=== PATIENT | female | born 1960 | race Caucasian/White ===

== ENCOUNTER → 2016-07-04 | Outpatient (CLI) | payer BC ==
[~2016-07-04] MED LIST: DAPT500I IV; GLC/500 PO; GLYB2.5T7 PO; LISI-787 PO; LISIPOW PO; MCR5 PO
== END | disposition home or self-care (01) ==
LOC: C.LABSPEC 17:27
PROVIDERS: ATTEND Podiatrist Foot & Ankle Surgery
DX: L97.509 Non-pressure chronic ulcer of other part of unspecified foot with unspecified severity (principal)

== ENCOUNTER → 2016-09-26 | Outpatient (CLI) | payer BC ==
--- NOTE | 2016-09-26 09:52 | DIAGNOSTIC IMAGING REPORT ---
MRI RIGHT FOREFOOT WITHOUT IV CONTRAST CLINICAL HISTORY: Foot ulcer. COMPARISON STUDY: No priors. TECHNIQUE: MRI of the right forefoot is performed utilizing various T1 and T2-weighted sequences in the axial, sagittal, coronal planes. IV contrast was not administered for this examination. The examination is significantly degraded by motion artifact. Note that interpretation is suboptimal without plain film correlate. FINDINGS: There is a cutaneous ulceration seen along the plantar aspect of the fifth metatarsal head. There is soft tissue edema in this region typical in appearance for cellulitis. There is no organized fluid collection seen to indicate abscess. There is significant marrow edema identified within the distal fifth metatarsal shaft and the fifth metatarsal head with drop in signal on T1-weighted sequence consistent with osteomyelitis. There is cortical destruction seen along the plantar aspect of the fifth metatarsal head. No additional foci of marrow abnormality are identified to suggest osteomyelitis. There is nonspecific myositis within the regional musculature. IMPRESSION: 1. Findings are consistent with osteomyelitis involving the distal shaft and head of the fifth metatarsal. 2. No additional foci of osteomyelitis are identified. 3. A cutaneous ulceration is seen along the plantar aspect of the fifth metatarsal head with surrounding cellulitis. There is no evidence of abscess. Dictated: 09/26/2016 9:15 AM Transcribed: 09/26/2016 9:51 AM [email or web address] Electronically signed by: Abhi Arias M.D. 09/26/2016 10:24 AM Dictated Date/Time: 09/26/2016 9:15 AM
== END | disposition home or self-care (01) ==
LOC: C.MRI 07:33
PROVIDERS: ATTEND Podiatrist Foot & Ankle Surgery
DX: E11.49 Type 2 diabetes mellitus with other diabetic neurological complication (principal); L03.115 Cellulitis of right lower limb; M20.42 Other hammer toe(s) (acquired), left foot; M20.41 Other hammer toe(s) (acquired), right foot; M86.171 Other acute osteomyelitis, right ankle and foot

== ENCOUNTER → 2016-10-09 | Outpatient (CLI) | payer BC ==
[2016-10-09 10:59] LABS: ALT/SGPT 18 U/L (12-78); AST/SGOT 11 U/L (15-37); BLOOD UREA NITROGEN 11 mg/dl (7-18); BUN/CREATININE RATIO 19.1 (10-20); CARBON DIOXIDE 28 mmol/L (21-32); CHLORIDE 105 mmol/L (98-107); CREATININE 0.57 mg/dl (0.60-1.20); GLUCOSE 198 mg/dl (70-99); POTASSIUM 3.8 mmol/L (3.5-5.1); SODIUM 139 mmol/L (136-145)
[2016-10-09 11:02] LABS: ALKALINE PHOSPHATASE 85 U/L (45-117)
== END | disposition home or self-care (01) ==
LOC: C.LABSPEC 10:14
PROVIDERS: ATTEND Podiatrist Foot & Ankle Surgery
DX: L03.115 Cellulitis of right lower limb (principal); M86.171 Other acute osteomyelitis, right ankle and foot

== ENCOUNTER 2016-10-13 10:32 | Emergency (ER) | payer BC ==
[~2016-10-13] VITALS: Ht 170.2 cm; Wt 74.8 kg
[~2016-10-13 10:32] MED LIST changes: -DAPT500I IV; -GLYB2.5T7 PO; -LISI-787 PO; -MCR5 PO
[2016-10-13 10:43] VITALS: BP 178/77; PULSE 96; TEMP 37.4; O2SAT 99; Ht 170.2 cm; Wt 74.8 kg
[2016-10-13] MEDS ORDERED: LISI-787 PO (11:01)
[2016-10-13] MEDS ORDERED: MCR5 PO (11:01)
--- NOTE | 2016-10-13 16:41 | EMERGENCY ROOM VISIT NOTE ---
History First contact with patient: 10:46 Chief Complaint: PICC LINE CLOTTED Stated Complaint: PICC LINE NOT WORKING CORRECTLY History of Present Illness The patient is a 56 year old female who presents to the Emergency Room with complaints of a PICC line and it is not working correctly. The patient is currently being administered IV vancomycin for osteomyelitis of her foot. She is under the management of Dr. Myers. The patient reports that the IV seems sluggish last evening. When she tried to flush it today, she did not have any success. Her home health care nurse suggested that she come to the emergency department for PICC line evaluation. She denies any pain in the right upper extremity or chest. She denies any shortness of breath. She has had no recent fever or chills. Review of Systems 10 system review was performed and was negative except for pertinent positives and negatives as indicated in history of present illness Past Medical/Surgical History Medical Problems: (1) Cellulitis Of Right Lower Limb (2) Non-Prs Chronic Ulcer Oth Prt Left Foot W Fat Layer Exposed (3) Other Acute Osteomyelitis, Right Ankle And Foot (4) Other Hammer Toe(S) (Acquired), Left Foot (5) Other Hammer Toe(S) (Acquired), Right Foot (6) Type 2 Diabetes W Oth Diabetic Neurological Complication (7) Ulcer Of Other Part Of Foot Family History Unremarkable Social History Smoking Status: Never Smoker Alcohol Use: occasionally Marital Status: Housing Status: lives alone Occupation Status: employed Current/Historical Medications Scheduled Glyburide (Glyburide), 2.5 MG PO QAM Lisinopril/Hctz (Zestoretic 20MG/12.5MG), 0.5 TAB PO QAM Metformin Hcl (Glucophage), 1,000 MG PO BID Allergies Coded Allergies: Penicillins (Verified Allergy, Severe, LIPS SWELL, 10/13/16) HAPPENED IN CHILDHOOD-PT DOESN'T REMEMBER IF SHE HAD DIFFICULTY BREATHING Physical Exam Vital Signs Date Time Temp Pulse Resp B/P Pulse Ox O2 Delivery O2 Flow Rate FiO2 10/13/16 10:43 37.4 96 20 178/77 99 Room Air Pain Rating (0-10): 0 Physical Exam CONSTITUTIONAL: Healthy and well nourished. Alert and oriented X 3 with positive affect. HEENT: Normocephalic, atraumatic. Pupils equal, round and reactive. NECK: Full active range of motion without discomfort. RESPIRATORY: Clear to auscultation bilaterally with no wheezing, crackles, rhonchi or stridor. CARDIOVASCULAR: Regular rate and rhythm with no murmurs, rubs or gallops. MUSCULOSKELETAL: Full range of motion of the right elbow and shoulder without discomfort. INTEGUMENTARY: Examination shows a PICC line insertion over the medial aspect of the upper arm. She has no obvious infiltration, erythema or induration around the venipuncture site. NEUROLOGIC: No focal neurologic deficits noted. Medical Decision & Procedures ED Course Patient history and physical exam were performed. Nurse's notes were reviewed. Vital signs were reviewed and were normal. IV team was consult did and came to the emergency department for PICC line evaluation. They were able to flush the PICC line, showing full functionality. Additional education was also provided to the patient. The patient was instructed to return to the emergency department for any further PICC line problems, otherwise may follow up for her outpatient IV antibiotic treatment. Medical Decision Impression Primary Impression: Occluded PICC line Departure Information Dispostion Home / Self-Care Condition GOOD Forms HOME CARE DOCUMENTATION FORM, IMPORTANT VISIT INFORMATION Patient Instructions [facility] Additional Instructions Return to the ER for any further PICC line problems
[2016-11-11] MEDS ORDERED: DAPT500I IV (10:17)
== END 2016-10-13 12:17 | disposition home or self-care (01) ==
LOC: C.EDB 10:39 → C.EDD 12:17
DX: T82.898A Other specified complication of vascular prosthetic devices, implants and grafts, initial encounter (principal); X58.XXXA Exposure to other specified factors, initial encounter; E11.40 Type 2 diabetes mellitus with diabetic neuropathy, unspecified; Z86.19 Personal history of other infectious and parasitic diseases; Z79.899 Other long term (current) drug therapy; Z88.0 Allergy status to penicillin

== ENCOUNTER 2016-10-14 17:08 | Inpatient (IN) | payer BC ==
[~2016-10-14] VITALS: Ht 170.2 cm; Wt 23.5 kg
[~2016-10-14 17:08] MED LIST changes: +LISI-787 PO; -LISIPOW PO; +MCR5 PO
--- NOTE | 2016-10-14 17:31 | HISTORY & PHYSICAL EXAMINATION ---
DATE OF ADMISSION: 10/14/2016 PREOPERATIVE HISTORY AND PHYSICAL HISTORY OF PRESENT ILLNESS: A 56-year-old female presented to my office with a red hot swollen right foot. She notes pain and swelling and drainage is located in the right foot. She grades the pain as a 7 on a 10 point scale and gradually worsening over time. She notes it is sore and tender. Condition was first noted several months ago and has recently become worse. She has been getting outpatient IV antibiotics of vancomycin and has been refusing surgical debridement due to work schedule and hospital admission at this time. Due to increased pain and swelling, she is amenable to hospital admission at this time. She notes the antibiotics have not changed the condition. She has had conservative treatment for several months including DH sandal, palliative debridements, local wound care and recent IV antibiotics of vancomycin. The patient is a direct admit from my office. PAST SURGICAL HISTORY: Tubal ligation 1994. PAST MEDICAL HISTORY: Hypertension, Lyme disease, diabetes, back problems. MEDICATIONS: Vancomycin, glyburide, metformin, lisinopril. ALLERGIES: PENICILLIN. FAMILY HISTORY: Diabetes, hypertension, stroke, heart problems, heart attack, high cholesterol. SOCIAL HISTORY: The patient admits to alcohol use, drinking described as social. REVIEW OF SYSTEMS: Unremarkable except chief complaint. Overall, blood sugar was reasonably controlled. She was taken off oral hypoglycemics in May; however, restarted as blood work showed an elevated hemoglobin A1c. She denies tingling. PHYSICAL EXAMINATION: VITAL SIGNS: Height 5 feet 7 inches, weight 150 pounds. Body mass index 23, tympanic temperature 96.4. CONSTITUTIONAL: The patient is well-developed and nourished with good attention to body grooming and habitus. HEAD AND FACE: Head is normocephalic and atraumatic without any gross head, face, or neck masses. EYES: Conjunctival and pupillary accommodation is normal. EARS, NOSE, MOUTH, AND THROAT: Unremarkable. NECK: Neck is supple. Trachea is midline. CARDIOVASCULAR: Normal S1, S2 without murmur, gallops, rubs, or clicks noted. LUNGS: Clear to auscultation bilaterally and equal. GASTROINTESTINAL: Abdominal organs, bladder, and kidneys show no masses, tenderness, or rigidity. LYMPHATIC: No popliteal, inguinal, or supraclavicular lymphadenopathy noted. LOWER EXTREMITY: DP palpable 1/4 and PT palpable 1/4 and digital hair is absent. Focal swelling is noted to the right fifth MTPJ. DERMATOLOGIC: There is erythema involving the plantar lateral and dorsal aspect of the right fifth MTPJ. Ulceration plantar right fifth MTPJ and plantar left fifth MTPJ. Preulcerative areas noted over the calcaneal room. There is exudate draining from the right fifth MTPJ with exposed tendon on the right fifth MTPJ. The bone is not palpable over this area. There is dried drainage noted in the callous tissue over the left fifth MTPJ. NEUROLOGICAL: Touch, pin, vibratory pain, proprioception sensations are decreased. Epicritic sensation decreased distally. Deep tendon reflexes are normal. MUSCULOSKELETAL: First metatarsophalangeal joint shows evidence of an enlarged dorsal medial eminence on the left. There is mild prominence of the fifth MTPJ bilaterally and plantar flex fifth MTPJ bilaterally. IMAGING DATA: MRI on 09/26/2016 shows cutaneous ulceration along the plantar aspect of the fifth metatarsal head, soft tissue edema in the region of typical and appearance for cellulitis. There is no organized fluid collection seen to indicate an abscess. There is significant marrow edema identified within the distal fifth metatarsal shaft and metatarsal head with a drop in the T1 weighted sequence consistent with osteomyelitis. There is cortical destruction seen along the plantar aspect of the fifth metatarsal heads. Findings consistent with osteomyelitis involving the distal shaft and head of the fifth metatarsal. No additional focal of osteomyelitis are identified. Cortices for the proximal phalanx are intact. There is cutaneous ulceration along the plantar aspect of the fifth metatarsal head with surrounding cellulitis. There is no evidence of an abscess. IMPRESSION: 1. Cellulitis, right foot. 2. Acute osteomyelitis, right fifth metatarsal. 3. Difficulty walking. 4. Pain, lower extremity. 5. Cristina grade 2 ulceration, right fifth metatarsophalangeal joint, when grade 1 ulceration left fifth metatarsophalangeal joint and preulcerative area noted to the heels bilaterally. PLAN: Recommended hospital admission with continued IV antibiotics. Surgical procedures to be performed: 1. I\T\D right foot. 2. Resection of fifth metatarsal possible fifth digit amputation on the right. The patient would like to proceed without amputation at this time. She has consented if there is Osteo in here; however, she would like to proceed with metatarsal head resection. Procedures, risks and complications were fully reviewed with the patient. She is aware that by leaving the fifth digit, she will end up with some digital contracture in this area, most likely will need amputation in the future. At this time, patient still would like to proceed with only the fifth metatarsal. She also was told that there is no guarantee that this surgery will not require further surgery, specifically while leaving part of the bone that is showing involvement on the MRI. Consent form, foot diagram and illustration and all the patient's questions were answered. They have been previously answered last week and would really irradiated today. Complications were discussed in detail with the patient including pain, infection, swelling that may or may not be excessive, pins and needles feeling, numbness, metatarsalgia, excessive bleeding, delay or nonhealing bone, delay or nonhealing of skin, enlarged scar, failure of the procedure, reoccurrence or worsening condition which may or may not require further surgery, adverse reaction to anesthesia, allergic reaction to suture or other implant material, loss of toe, foot, or leg, flail toe, stiff toe, short toe, elevated toe, transfer lesion or callus, peripheral neurovascular complications such as phlebitis, damage to nerves or vascular structures, severe or chronic pain, chronic nerve pain or damage, and general medical complications. The patient will be required to wear a surgery shoe for a minimum of 4-6 weeks and not return to dress shoe for 6-12 weeks on the postop edema. The patient is aware this is an elective type procedure and I recommend a second opinion. The patient stated they understood. Consent form was signed with a copy of the foot diagram issued to the patient. Verbal and written postop instructions were given. The patient will be required to be in a surgery shoe for a minimum of 4-6 weeks and not return to dress shoe for 6-12 weeks, depending on the postoperative edema. The patient will be admitted. We have attempted to reach the [facility] physician, recommended a good glucose control and oncall to the OR for an I\T\D and resection of fifth metatarsal possible right fifth digital amputation to the right foot.
[2016-10-14 18:44] VITALS: BP 152/82; PULSE 100; TEMP 36.7; Ht 170.2 cm; Wt 23.5 kg
[2016-10-14] MEDS ORDERED: GLUCOSE 10 TABS/TUBE PO PRN (19:00)
[2016-10-14] MEDS ORDERED: DEXTROSE 50% 50 ML SYR IV PRN (19:00)
[2016-10-14] MEDS ORDERED: GLUCAGON FOR INJ 1 MG VIAL SQ PRN (19:00)
[2016-10-14] MEDS ORDERED: GLUCOSE 40% GEL 15 GM TUBE PO PRN (19:00)
[2016-10-14] MEDS ORDERED: ACETAMINOPHEN 325 MG TAB PO PRN (19:15)
[2016-10-14] MEDS ORDERED: SODIUM CHLORIDE 0.9% 1000ML 1,000 ML IV SCH (19:15)
--- NOTE | 2016-10-14 19:28 | Anesthesiology Progress Note ---
Anesthesia Progress Note Date of Service October 14, 2016. Progress Notes The patient is a 56 y/o female scheduled for a R fifth metatarsal amputation tomorrow. She has R foot cellulitis which she has been on Vancomycin to treat as an outpatient. The patient has an allergy to penicillins. Other PMH includes Type 2 DM, HTN, and back pain. She has good functional status and no problems with anesthesia. An EKG showed NSR. CBC and electrolytes are pending. On exam the patient has good neck extension and is a MP 1. Heart is RRR and lungs are clear. Carotids are negative for bruits. The patient is an ASA 2. She was consented to general vs. MAC sedation vs. R ankle block for the anesthetic. The anesthetic will be determined tomorrow by the patient, Dr. Smiley, and the anesthesiologist caring for her during the procedure. The patient was counseled to remain NPO after midnight except for sips of water with pills.
[2016-10-14] MEDS ORDERED: VANCOMYCIN CONSULT ACTIVE PRN (20:45)
--- NOTE | 2016-10-14 20:50 | Pharmacy Progress Note ---
Pharmacy Antibiotic Consult Date of Service: October 14, 2016. Pharmacy Dosing Scope Pharmacy is consulted to initiate vancomycin IV dosing therapy, order appropriate labs and adjust drug dose/frequency. Subjective The patient is a 56 year old female admitted on October 14, 2016 at 17:50 with worsening diabetic foot infection. She was started on vancomycin as an outpatient on 10/03/16. She was started on vancomycin 1200 mg IV q12 which was increased on Friday to 1300 mg IV q12. She has not missed any doses. She takes the medication at 11 am and 11 pm. Previous cultures have grown only gram positive bacteria. Objective Height (Feet): 5 Height (Inches): 7.00 Weight (Kilograms): 23.500 Lab Results (24hrs): Test 10/14/16 18:22 10/14/16 20:20 Assessment & Plan Continue vancomycin 1300 mg IV every 12 hours. Goal peak level estimate: between 35 - 40 mcg/mL. Goal trough level estimate: between 15 - 20 mcg/mL. Trough has been ordered for: prior to 11 am dose. Pharmacy will continue to follow and will adjust dose/frequency as necessary. Thank you
[2016-10-14] MEDS ORDERED: INSULIN ASPART 100 UNITS/ML 3 ML PEN SC SCH (21:00)
[2016-10-14 21:24] LABS: BASO % 0.7 %; BASO ABS # 0.04 K/uL (0-0.2); COMPLETE YES; HEMATOCRIT 31.1 % (37-47); IG% 0.2 %; LYMPH % 29.6 %; LYMPH ABS # 1.68 K/uL (1.2-3.4); MEAN CELL VOLUME 88.9 fL (80-100); MEAN CORPUSCULAR HEMOGLOBIN 28.9 pg (25-34); MEAN CORPUSCULAR HGB CONC 32.5 g/dl (32-36); MEAN PLATELET VOLUME 9.6 fL (7.4-10.4); MONO % 16.4 %; NEUT % 49.1 %; PLATELET COUNT 278 K/uL (130-400); WHITE BLOOD COUNT 5.68 K/uL (4.8-10.8)
[2016-10-14 21:48] LABS: BUN/CREATININE RATIO 19.5 (10-20); CREATININE 0.58 mg/dl (0.60-1.20); POTASSIUM 3.7 mmol/L (3.5-5.1)
[2016-10-14 21:51] LABS: PHOSPHORUS 2.9 mg/dl (2.5-4.9)
--- NOTE | 2016-10-14 21:56 | DIAGNOSTIC IMAGING REPORT ---
RIGHT FOOT 3 VIEWS CLINICAL HISTORY: Right foot pain. Osteomyelitis. FINDINGS: 3 views the right foot are correlated with MRI of the right forefoot dated 09/26/2016. The skeletal structures are osteopenic. No fracture is seen. Erosive change, cortical disruption, and lucency are suggested in the fifth metatarsal head. This likely represents osteomyelitis, and corresponds the abnormality seen by MRI on 09/26/2016. There is overlying soft tissue edema. A cutaneous defect along the plantar aspect of the fifth metatarsal head likely represents a cutaneous ulceration. No additional foci of bony destruction are suggested. A small radiodense foreign body is suggested between the third and fourth proximal phalanges. IMPRESSION: Findings remain highly concerning for osteomyelitis of the fifth metatarsal head with overlying soft tissue edema and probable cutaneous ulcer. Electronically signed by: Abhi Arias M.D. 10/14/2016 9:55 PM Dictated Date/Time: 10/14/2016 9:52 PM
--- NOTE | 2016-10-14 22:06 | Medical Consult ---
Consultation Date of Consultation: October 14, 2016. Attending Physician: Hailee Smiley D.PDannielle Reason for Consultation: comedical management History of Present Illness This is a 56 year old female directly admitted by autotransfusionist Dr. Smiley for right foot cellulitis with osteomyelitis of right 5th metatarsal. Patient reports right foot ulcer is present since April 2016. Then in July 2016 she developed cellulitis of the left foot with symptoms of pain, swelling, erythema. She had an MRI on 09/26/16 showing osteomyelitis of right 5th metatarsal. Patient reports taking 3 oral antibiotics prior to being placed on vancomycin via PICC line since 10/03/16. Last dose this morning. She was having trouble flushing her PICC line yesterday and was seen in ER with resolution, but had trouble again today. Patient states erythema improved with abx but still having pain and swelling. Has had slight serosanguineous drainage from the ulcer. Patient has had multiple debridements including today in Dr. Smiley' s office. Patient denies fever, chills, chest pain, SOB, N/V/D, urinary changes , calf pain. She is able to climb stairs without exertional SOB or chest pain. No history of CAD/ MS. She had a preop evaluation by her PCP Dr. Agrawal and was considered an acceptable surgery candidate. Past Medical/Surgical History Medical Problems: (1) Diabetic neuropathy Status: Chronic (2) DM type 2 (diabetes mellitus, type 2) Status: Chronic (3) Dyslipidemia Status: Chronic (4) HTN (hypertension) Status: Chronic Surgical Problems: (1) S/P tonsillectomy Status: Chronic (2) S/P tubal ligation Status: Chronic Family History Diabetes mellitus FATHER FH: CAD (coronary artery disease) FATHER (MS age 59, CABG x 3) Hypertension MOTHER Social History Smoking Status: Never Smoker Alcohol Use: occasionally Housing Status: lives alone Allergies Coded Allergies: Penicillins (Verified Allergy, Severe, LIPS SWELL, 10/13/16) HAPPENED IN CHILDHOOD-PT DOESN'T REMEMBER IF SHE HAD DIFFICULTY BREATHING Home Medications Active Reported Glyburide 5 Mg Tab 2.5 Mg PO QAM Zestoretic 20MG/12.5MG (HCTZ/Lisinopril) Tab 0.5 Tab PO QAM Glucophage (Metformin Hcl) 500 Mg Tab 1,000 Mg PO BID Review of Systems Ten systems reviewed and negative except noted in HPI. Physical Exam General Appearance: WD/WN, no apparent distress, + pertinent finding (alert cooperative 56 year old female, sitting up in bed, no distress) Head: normocephalic, atraumatic Eyes: normal inspection, PERRL, EOMI ENT: hearing grossly normal, pharynx normal Neck: supple, trachea midline Respiratory/Chest: lungs clear, normal breath sounds, no respiratory distress Cardiovascular: regular rate, rhythm, no murmur Abdomen/GI: normal bowel sounds, non tender, soft Extremities/Musculoskelatal: no calf tenderness, normal capillary refill, no pedal edema Neurologic/Psych: alert, normal mood/affect, oriented x 3, + pertinent finding (no focal deficit on gross examination. right foot able to sense light touch. ) Skin: normal color, warm/dry, + pertinent finding (right foot dressing in place , no erythema or swelling outside surrounding the dressed area) Laboratory Results Last 24 Hours Test 10/14/16 18:22 Assessment & Plan RIGHT FOOT CELLULITIS OSTEOMYELITIS RIGHT 5TH METATARSAL Directly admitted by autotransfusionist Dr. Smiley Prior MRI 09/26/16 showed osteomyelitis right 5th metatarsal R foot x-ray- highly concerning for osteomyelitis of the fifth metatarsal head with overlying soft tissue edema and probable cutaneous ulcer. Afebrile; no leukocytosis; ESR elevated to 42 Continue IV vancomycin Had preop evaluation with PCP Dr. Agrawal on 10/05/16- considered acceptable surgical candidate EKG- NSR, no ischemic findings Acceptable to proceed for surgery NPO after midnight Plan for OR tomorrow morning for I&D, resection of right 5th metatarsal with possible 5th digit amputation Consult ID DM TYPE 2 On metformin 100 mg BID; glyburide 2.5 mg daily recently added for A1c of 10 on 10/03/16 Hold oral antidiabetic medications during hospitalization Insulin sliding scale coverage Monitor BSG AC HS MILD ANEMIA Hg is 10.1; decreased from 12.1 on 10/03 Check iron studies in am Monitor CBC HYPERTENSION BP is mildly elevated Continue lisinopril- HCTZ DVT PROPHYLAXIS SCD knee due to planned procedure FULL CODE Patient seen in collaboration with Dr. Sidhu. Please see her addendum. I have seen and evaluated the patient and discussed the case with the provider above. I agree with the assessment and plan as stated. DO Nahum
[2016-10-14 22:36] LABS: CALCIUM 9.2 mg/dl (8.5-10.1)
[2016-10-14 22:52] VITALS: BP 154/82; PULSE 95; TEMP 36.6; O2SAT 97
[2016-10-14] MEDS: VANCOMYCIN INJ 1,300 MG in SODIUM CHLORIDE 0.9% 250ML 250 ML IV SCH (22:58)
[2016-10-14] MEDS ORDERED: NURSING VERBAL MED ORDER ONE (23:30)
[2016-10-15 05:11] LABS: HEMATOCRIT 28.9 % (37-47); MEAN CELL VOLUME 89.2 fL (80-100); MEAN CORPUSCULAR HEMOGLOBIN 29.3 pg (25-34); MEAN CORPUSCULAR HGB CONC 32.9 g/dl (32-36); MEAN PLATELET VOLUME 9.8 fL (7.4-10.4); PLATELET COUNT 242 K/uL (130-400); RED BLOOD COUNT 3.24 M/uL (4.2-5.4); WHITE BLOOD COUNT 4.77 K/uL (4.8-10.8)
[2016-10-15 05:29] LABS: C-REACTIVE PROTEIN 0.41 mg/dl (0-0.29); CREATININE 0.5 mg/dl (0.60-1.20)
[2016-10-15 05:42] LABS: FERRITIN 98.6 ng/ml (8.0-388.0)
[2016-10-15] MEDS: INSULIN ASPART 100 UNITS/ML 3 ML PEN SC SCH ×3 (06:00→12:00)
[2016-10-15 06:50] VITALS: BP 113/67; PULSE 95; TEMP 36.7; O2SAT 95
[2016-10-15] MEDS ORDERED: HYDROCHLOROTHIAZIDE 25 MG TAB PO SCH (09:00)
[2016-10-15] MEDS: LISINOPRIL/HCTZ 20/12.5MG TAB PO SCH ×2 (09:06→09:09)
[2016-10-15] MEDS ORDERED: LIDOCAINE HCL 2% 2 ML VIAL (20MG/ML) ONE (09:47)
[2016-10-15] MEDS ORDERED: PROPOFOL IV EMULSION 10 MG/ML 20 ML VIAL IV ONE (09:47)
[2016-10-15] MEDS ORDERED: ONDANSETRON INJ 2 MG/ML 2 ML VIAL ONE (09:47)
[2016-10-15] MEDS ORDERED: MIDAZOLAM HCL 1 MG/ML 2ML VIAL ONE (09:47)
[2016-10-15] MEDS ORDERED: DEXAMETHASONE SOD INJ 4 MG/ML VIAL ONE (09:47)
[2016-10-15] MEDS ORDERED: FENTANYL CITRATE INJ 50 MCG/1 ML 2 ML VIAL ONE (09:48)
--- NOTE | 2016-10-15 10:08 | Medical Consult ---
Consultation Date of Consultation: October 15, 2016. Attending Physician: Hailee Smiley D.P.M. Reason for Consultation: Osteomyelitis right foot History of Present Illness 56-year-old female with longstanding diabetes mellitus with diabetic peripheral neuropathy, who has been dealing with a diabetic foot ulcer of her right foot since April 2016. She has undergone courses of oral antibiotics and debridement, but over the last several weeks has noted increasing redness, swelling, and drainage from the ulcer. She had MRI scan done at the end of August which showed evidence of osteomyelitis of the right 5th metatarsal. Since early September, she has been receiving IV vancomycin as an outpatient but symptoms have worsened and she is now admitted for his surgical intervention. She denies any associated fever, chills, or other systemic complaints. Past Medical/Surgical History Medical Problems: (1) Occluded PICC line Status: Acute Medical Problems: (1) Cellulitis Of Right Lower Limb (2) Diabetic neuropathy (3) DM type 2 (diabetes mellitus, type 2) (4) Dyslipidemia (5) HTN (hypertension) (6) Non-Prs Chronic Ulcer Oth Prt Left Foot W Fat Layer Exposed (7) Other Acute Osteomyelitis, Right Ankle And Foot (8) Other Hammer Toe(S) (Acquired), Left Foot (9) Other Hammer Toe(S) (Acquired), Right Foot (10) Type 2 Diabetes W Oth Diabetic Neurological Complication (11) Ulcer Of Other Part Of Foot Surgical Problems: (1) S/P tonsillectomy (2) S/P tubal ligation Family History Diabetes mellitus FATHER FH: CAD (coronary artery disease) FATHER (PR age 59, CABG x 3) Hypertension MOTHER Social History Smoking Status: Never Smoker Alcohol Use: occasionally Housing Status: lives alone Allergies Coded Allergies: Penicillins (Verified Allergy, Severe, LIPS SWELL, 10/13/16) HAPPENED IN CHILDHOOD-PT DOESN'T REMEMBER IF SHE HAD DIFFICULTY BREATHING Current Inpatient Medications Current Inpatient Medications Medications (Trade) Dose Ordered Sig/Racquel Route Start Time Stop Time Status Last Admin Dose Admin Glucose (Glucose 40% Gel) 15-30 GRAMS 15 GRAMS... UD PRN PO 10/14/16 19:00 11/13/16 18:59 Glucose (Glucose Chew Tab) 4-8 Tablets 4 Tabl... UD PRN PO 10/14/16 19:00 6/14/17 18:59 Dextrose (Dextrose 50% 50ML Syringe) 25-50ML OF 50% DW IV FOR... UD PRN IV 10/14/16 19:00 11/13/16 18:59 Glucagon 1 mg 1 mg UD PRN SQ 10/14/16 19:00 11/13/16 18:59 Vancomycin HCl/ Sodium Chloride (Vancomycin Inj/ Nss 250ml) 276 ml @ 125 mls/hr Q12H IV 10/14/16 23:00 11/25/16 22:59 10/14/16 22:58 125 MLS/HR Diphenhydramine HCl (Benadryl Cap) 25 mg HS PRN PO 10/14/16 19:15 11/13/16 19:14 Acetaminophen (Tylenol Tab) 650 mg Q6H PRN PO 10/14/16 19:15 11/13/16 19:14 HCTZ/Lisinopril 1 tab 1 tab DAILY PO 10/15/16 09:00 11/14/16 08:59 10/15/16 09:09 0.5 TAB Sodium Chloride (Nss 1000ml) 1,000 ml @ 30 mls/hr Q24H IV 10/14/16 19:15 11/13/16 19:14 10/14/16 22:07 30 MLS/HR Vancomycin HCl (Consult) 1 ea UD PRN N/A 10/14/16 20:45 11/13/16 20:44 Insulin Aspart (novoLOG ASPART) SLIDING SCALE If C... Q6 SC 10/15/16 00:00 11/14/16 00:00 Heparin Sodium (Porcine) (Heparin 10 Unit/ ml 5 ml Flush) 5 ml PRN PRN FLUSH 10/15/16 02:00 11/14/16 01:59 Review of Systems All systems were reviewed and are negative except as per HPI Physical Exam Date Time Temp Pulse Resp B/P Pulse Ox O2 Delivery O2 Flow Rate FiO2 10/15/16 07:30 Room Air 10/15/16 06:50 36.7 95 19 113/67 95 Room Air 10/15/16 00:45 Room Air 10/14/16 22:52 36.6 95 16 154/82 97 Room Air 10/14/16 20:00 Room Air 10/14/16 18:44 36.7 100 16 152/82 Room Air General Appearance: WD/WN, no apparent distress Head: normocephalic, atraumatic Eyes: normal inspection, EOMI, sclerae normal ENT: normal ENT inspection, hearing grossly normal, pharynx normal Neck: supple, no adenopathy, thyroid normal, trachea midline Respiratory/Chest: chest non-tender, lungs clear, normal breath sounds, no respiratory distress Cardiovascular: regular rate, rhythm, no gallop, no murmur Abdomen/GI: normal bowel sounds, non tender, soft, no organomegaly Back: normal inspection, no CVA tenderness Extremities/Musculoskelatal: no calf tenderness, normal capillary refill Neurologic/Psych: alert, oriented x 3 Skin: normal color, no rash, + pertinent finding (Right plantar foot ulcer with surrounding erythema and some seropurulent drainage) Lymphatic: no adenopathy Laboratory Results RUN DATE: 07/06/16 [facility] LAB PAGE 1 RUN TIME: 1209 Specimen Inquiry PATIENT: OSMAR ROBERTS LOC: LISSA # : [id number] AGE/SX: 55/F ROOM: REG : 07/04/[address]: Hailee Smiley D : 1960 BED: DIS : STATUS: REG CLI TLOC: SPEC #: [id number] KATT: 07/04/16-UNK STATUS: COMP REQ #: [id number] RECD: 07/04/[address]: Hailee SmileyD.P.M. SOURCE: ULCER ENTR: 07/04/16-[address] [facility] [address]: Av Agrawal M.D.(ROSALINDA) SPDESC: FOOT LEFT ORDERED: SURF WND CU/SMR Procedure Result Verified Site GRAM STAIN Final 07/05/16-914 RESULT MODERATE EPITHELIAL CELLS MANY GRAM POSITIVE COCCI NO WBCs SEEN SURFACE WOUND CULTURE Final 07/06/16-1209 Organism 1 GROUP A BETA STREP QUANITY MANY SENS NO SENSITIVITY TO FOLLOW Organism 2 COAG NEG STAPHYLOCOCCUS QUANITY MODERATE SENS NO SENSITIVITY TO FOLLOW Phoned results to SUZANNA CURRAN MD OFFICE on 07/05/16 at 0904 by Robert Leone. Results were verbalized back to JEFERSON. Last 24 Hours Test 10/14/16 20:23 10/14/16 21:15 10/15/16 04:55 Bedside Glucose 107 mg/dl White Blood Count 5.68 K/uL 4.77 K/uL Red Blood Count 3.50 M/uL 3.24 M/uL Hemoglobin 10.1 g/dL 9.5 g/dL Hematocrit 31.1 % 28.9 % Mean Corpuscular Volume 88.9 fL 89.2 fL Mean Corpuscular Hemoglobin 28.9 pg 29.3 pg Mean Corpuscular Hemoglobin Concent 32.5 g/dl 32.9 g/dl Platelet Count 278 K/uL 242 K/uL Mean Platelet Volume 9.6 fL 9.8 fL Neutrophils (%) (Auto) 49.1 % Lymphocytes (%) (Auto) 29.6 % Monocytes (%) (Auto) 16.4 % Eosinophils (%) (Auto) 4.0 % Basophils (%) (Auto) 0.7 % Neutrophils # (Auto) 2.79 K/uL Lymphocytes # (Auto) 1.68 K/uL Monocytes # (Auto) 0.93 K/uL Eosinophils # (Auto) 0.23 K/uL Basophils # (Auto) 0.04 K/uL RDW Standard Deviation 45.4 fL 46.0 fL RDW Coefficient of Variation 14.0 % 14.1 % Immature Granulocyte % (Auto) 0.2 % Immature Granulocyte # (Auto) 0.01 K/uL Erythrocyte Sedimentation Rate 42 mm/hr 26 mm/hr Sodium Level 139 mmol/L Potassium Level 3.7 mmol/L Chloride Level 103 mmol/L Carbon Dioxide Level 30 mmol/L Anion Gap 6.0 mmol/L Blood Urea Nitrogen 11 mg/dl Creatinine 0.58 mg/dl 0.50 mg/dl Est Creatinine Clear Calc Drug Dose 41.1 ml/min 47.7 ml/min Estimated GFR () 121.1 127.2 Estimated GFR (Non- 104.5 109.7 BUN/Creatinine Ratio 19.5 Random Glucose 161 mg/dl Calcium Level 9.2 mg/dl Phosphorus Level 2.9 mg/dl Total Bilirubin 0.3 mg/dl Aspartate Amino Transf (AST/SGOT) 13 U/L Alanine Aminotransferase (ALT/SGPT) 16 U/L Alkaline Phosphatase 75 U/L Total Protein 6.8 gm/dl Albumin 3.4 gm/dl Globulin 3.4 gm/dl Albumin/Globulin Ratio 1.0 Hepatitis C Antibody Screen NEG Iron Level 31 mcg/dl Total Iron Binding Capacity 268 mcg/dl Ferritin 98.6 ng/ml C-Reactive Protein 0.41 mg/dl Patient Name: OSMAR ROBERTS Unit Number: [id number] Dictated: 09/26/16914 Transcribed: 09/26/16950 Printed Date/Time: [~ rep prt dt]/[~ rep prt tm] [~ rep ct labl] - [~ rep ct ivnm] [facility] [place] [address] Dictated: 09/26/16914 Transcribed: 09/26/16950 Printed Date/Time: [~ rep prt dt]/[~ rep prt tm] [~ rep ct labl] - [~ rep ct ivnm] [~ rep ct add3]] MRI RIGHT FOREFOOT WITHOUT IV CONTRAST CLINICAL HISTORY: Foot ulcer. COMPARISON STUDY: No priors. TECHNIQUE: MRI of the right forefoot is performed utilizing various T1 and T2-weighted sequences in the axial, sagittal, coronal planes. IV contrast was not administered for this examination. The examination is significantly degraded by motion artifact. Note that interpretation is suboptimal without plain film correlate. FINDINGS: There is a cutaneous ulceration seen along the plantar aspect of the fifth metatarsal head. There is soft tissue edema in this region typical in appearance for cellulitis. There is no organized fluid collection seen to indicate abscess. There is significant marrow edema identified within the distal fifth metatarsal shaft and the fifth metatarsal head with drop in signal on T1-weighted sequence consistent with osteomyelitis. There is cortical destruction seen along the plantar aspect of the fifth metatarsal head. No additional foci of marrow abnormality are identified to suggest osteomyelitis. There is nonspecific myositis within the regional musculature. IMPRESSION: 1. Findings are consistent with osteomyelitis involving the distal shaft and head of the fifth metatarsal. 2. No additional foci of osteomyelitis are identified. 3. A cutaneous ulceration is seen along the plantar aspect of the fifth metatarsal head with surrounding cellulitis. There is no evidence of abscess. Dictated: 09/26/2016 9:15 AM Transcribed: 09/26/2016 9:51 AM Jodi Electronically signed by: Abhi Arias M.D. 09/26/2016 10:24 AM Dictated Date/Time: 09/26/2016 9:15 AM The status of this report is Signed. Draft = Not yet reviewed or approved by Radiologist. Signed = Reviewed and approved by Radiologist. <AttendingPhy>Hailee Smiley D.P.M.</AttendingPhy> <FamilyPhy>Av Agrawal M.D.(ROSALINDA)</FamilyPhy> <PrimaryPhy>Av Agrawal M.D.(ROSALINDA)</ PrimaryPhy> <UnitNumber>[id number]</UnitNumber> <VisitNumber>[id number]</ VisitNumber> <PatientName>OSMAR ROBERTS</PatientName> <DateOfBirth>1960< /DateOfBirth> <Location>C.MRI</Location> <ServiceDate>09/26/16</ServiceDate> < MNE>ESINDI</MNE> <OrderingPhy>Hailee Smiley D.P.M.</OrderingPhy> < OrderingPhyMNE>f rep ord dr zhang</OrderingPhyMNE> <DictatingPhyMNE>f rep dict dr zhang</DictatingPhyMNE> <CCListMNE>f rep ct mne</CCListMNE> <AdmittingPhyMNE>f pt admit dr zhang</AdmittingPhyMNE> <AttendingPhyMNE>f pt attend dr zhang</ AttendingPhyMNE> <ConsultingPhyMNE>f pt consult dr zhang</ConsultingPhyMNE> <FamilyPhyMNE>f pt fam dr zhang</FamilyPhyMNE> <OtherPhyMNE>f pt other dr zhang</OtherPhyMNE> < PrimaryPhyMNE>f pt prim care dr zhang</PrimaryPhyMNE> <ReferringPhyMNE>f pt referring dr zhang</ReferringPhyMNE> [~ rep ct add3]] RIGHT FOOT 3 VIEWS CLINICAL HISTORY: Right foot pain. Osteomyelitis. FINDINGS: 3 views the right foot are correlated with MRI of the right forefoot dated 09/26/2016. The skeletal structures are osteopenic. No fracture is seen. Erosive change, cortical disruption, and lucency are suggested in the fifth metatarsal head. This likely represents osteomyelitis, and corresponds the abnormality seen by MRI on 09/26/2016. There is overlying soft tissue edema. A cutaneous defect along the plantar aspect of the fifth metatarsal head likely represents a cutaneous ulceration. No additional foci of bony destruction are suggested. A small radiodense foreign body is suggested between the third and fourth proximal phalanges. IMPRESSION: Findings remain highly concerning for osteomyelitis of the fifth metatarsal head with overlying soft tissue edema and probable cutaneous ulcer. Electronically signed by: Abhi Arias M.D. 10/14/2016 9:55 PM Dictated Date/Time: 10/14/2016 9:52 PM The status of this report is Signed. Draft = Not y Assessment & Plan 56-year-old female with diabetic foot ulcer with now underlying osteomyelitis, prior cultures positive for Streptococcus.Pending operative cultures, vancomycin should provide adequate coverage. I will adjust once these are available. We will follow.
[2016-10-15] MEDS ORDERED: VANCOMYCIN TROUGH SCH (10:30)
[2016-10-15] MEDS: VANCOMYCIN INJ 1,300 MG in SODIUM CHLORIDE 0.9% 250ML 250 ML IV SCH (10:50)
--- NOTE | 2016-10-15 11:06 | History & Physical Bridge Note ---
H&P Re-Evaluation Bridge Note: I have examined the patient, reviewed the History & Physical and in the interval since the performance of the History & Physical I have noted the following changes of clinical significance: No changes noted
--- NOTE | 2016-10-15 11:26 | Discharge Instructions ---
Discharge Instructions Date of Service October 15, 2016. Admission Reason for Admission: Osteomylitis Of Leg Discharge Discharge Diagnosis / Problem: same as dx Discharge Goals Goal(s): Decrease discomfort Activity Recommendations Activity Limitations: as noted below Medications: * Resume previous medications unless instructed by your surgeon. * Take your medications as prescribed. Call our office ([phone]) at any time, if you experience severe pain that does not subside shortly after taking your pain medication. Activity: * You may walk on your operated foot/ankle using the surgical shoe or cast/splint. Do not put any weight on your operated foot/ankle without wearing the surgical shoe or cast sandal.. Special Care: * Keep your bandage clean and dry. Do not remove your bandage unless otherwise instructed. A small amount of blood may appear on the bandage over the surgical site. Call our office ([phone]) if you bandage becomes blood-soaked or wet. * Elevate your operated foot/ankle on pillows, above the level of your heart, as often as possible during the first 2-3 days following surgery. Keep your knee flexed slightly with a pillow under your knee when you elevate your foot/ankle. * Apply a ice bag to your foot/ankle over the operative site for 20-30 minutes out of each hour while you are awake. Do not allow the ice bag to directly contact bare skin. * Avoid bumping or handling any pins visible in your toes. If any pin feels or appears loose, call the office ([phone]). * Take your oral temperature in the morning and at bedtime. Call our office ([phone]) if your temperature rises above 101 degrees Fahrenheit. Call your surgeon's office at ([phone]) for any problems or concerns such as excessive bleeding and/or pain unrelieved by your prescribed pain medications. If you have any questions, please do not hesitate to ask them. Avoid all tobacco products. If you need help to stop smoking, call [place]'s FREE QUITLINE at . This is a free call. Follow-up: Follow-up with Dr. Smiley . Current Hospital Diet Patient's current hospital diet: Diabetes Type 2 Diet, AHA Diet (Heart Healthy) Discharge Diet Recommended Diet: AHA Diet (Heart Healthy), Diabetes Type 2 Diet Pending Studies Studies pending at discharge: no Laboratory Results Hemoglobin A1c Test 10/03/16 09:38 Range/Units Estimated Average Glucose 240 mg/dl Hemoglobin A1c 10.0 H 4.5-5.6 % Medical Emergencies . Who to Call and When: Medical Emergencies: If at any time you feel your situation is an emergency, please call 911 immediately. . Non-Emergent Contact Non-Emergency issues call your: Primary Care Provider . "Provider Documentation" section prepared by Hailee Patino. . VTE Core Measure Inpt VTE Proph given/why not?: SCD's
[2016-10-15] MEDS ORDERED: OXYCODONE/ACETAMINOPHEN 5-325 TAB PO PRN (11:30)
[2016-10-15] MEDS ORDERED: PHENYLEPHRINE 100MCG/ML 5ML SYR ONE (11:57)
--- NOTE | 2016-10-15 12:55 | DIAGNOSTIC IMAGING REPORT ---
RIGHT FOOT MIN 3 VIEWS ROUTINE CLINICAL HISTORY: postop Right osteomyelitis COMPARISON: 10/14/2016 DISCUSSION: Interval resection of the distal aspect of fifth metatarsal. Mild soft tissue edematous change. Mild degenerative change of all remaining osseous structures. Small heel spur. There is no evidence for soft tissue swelling. IMPRESSION: Operative resection distal aspect fifth metatarsal. Electronically signed by: Roberto Singh M.D. 10/15/2016 12:53 PM Dictated Date/Time: 10/15/2016 12:52 PM
--- NOTE | 2016-10-15 12:56 | Anesthesiology Progress Note ---
Anesthesia Post Op Note Date & Time October 15, 2016 at 12:56 Vital Signs Pain Intensity: 0 Vital Signs Past 12 Hours Date Time Temp Pulse Resp B/P Pulse Ox O2 Delivery O2 Flow Rate FiO2 10/15/16 12:50 92 14 119/66 100 Nasal Cannula 2 10/15/16 12:40 87 11 105/59 100 Mask 10 10/15/16 12:30 87 17 99/51 100 Mask 10 10/15/16 12:24 36.1 77 20 92/43 100 Mask 10 10/15/16 07:30 Room Air 10/15/16 06:50 36.7 95 19 113/67 95 Room Air Notes Mental Status: alert / awake / arousable, participated in evaluation Pt Amnestic to Procedure: Yes Nausea / Vomiting: adequately controlled Pain: adequately controlled Airway Patency, RR, SpO2: stable & adequate BP & HR: stable & adequate Hydration State: stable & adequate Anesthetic Complications: no major complications apparent
[2016-10-15] MEDS ORDERED: EpHEDrine SULFATE INJ 50 MG/ML AMP IV PRN (13:00)
[2016-10-15] MEDS ORDERED: ATROPINE SULFATE 0.1 MG/ML 5ML SYR IV PRN (13:00)
[2016-10-15 13:15] VITALS: BP 124/77; PULSE 91; TEMP 36.7; O2SAT 98
[2016-10-15] MEDS ORDERED: NURSING VERBAL MED ORDER ONE (13:15)
--- NOTE | 2016-10-15 13:38 | DIAGNOSTIC IMAGING REPORT ---
TOE(S) MIN 2 VIEWS CLINICAL HISTORY: 5TH METATARSAL AMPUTATION COMPARISON STUDY: Right foot 10/14/2016. FINDINGS: Total fluoroscopy time 4 seconds. A single fluoroscopic spot image of the right foot. There is distal amputation of the right fifth metatarsal. IMPRESSION: Fluoroscopy provided for distal amputation of the right fifth metatarsal. Electronically signed by: Marco Antonio Deleon M.D. 10/15/2016 1:37 PM Dictated Date/Time: 10/15/2016 1:35 PM
[2016-10-15 13:39] VITALS: BP 124/77; PULSE 91; TEMP 36.7; O2SAT 98
[2016-10-15 13:45] VITALS: BP 135/81; PULSE 88; TEMP 36.7; O2SAT 98
[2016-10-15 14:15] VITALS: BP 129/75; PULSE 96; TEMP 37; O2SAT 95
[2016-10-15] MEDS ORDERED: BUPIVACAINE 0.5 % 5 MG/1 ML MPF 30ML VIAL ONE (14:35)
[2016-10-15] MEDS ORDERED: BACITRACIN 50000 UNIT VIAL ONE (14:35)
--- NOTE | 2016-10-15 14:55 | OPERATIVE REPORT ---
DATE OF OPERATION: 10/15/2016 PREOPERATIVE DIAGNOSES: 1. Acute osteomyelitis, right foot. 2. Cristina grade 2 ulceration, right fifth metatarsophalangeal joint. 3. Non-insulin dependent diabetes mellitus with early peripheral neuropathy. POSTOPERATIVE DIAGNOSES: Same as above with cyst plantar right fifth metatarsophalangeal joint. PROCEDURES: 1. I\T\D right foot dorsal and plantar aspects multiple areas. 2. Partial excision right fifth metatarsal with incision of bone cortex. 3. Excision cyst plantar right fifth metatarsophalangeal joint. SURGEON: Dr. Smiley. ANESTHESIA: General with local field block performed with 0.5% Marcaine plain, total of 30 mL. HEMOSTASIS: None. ESTIMATED BLOOD LOSS: Less than 15 mL. HISTOPATHOLOGY: Deep aerobic and anaerobic culture and Gram stain and bone sent for culture. MATERIALS: 2-0, 3-0 nylon and iodoform Nu Gauze. FINDINGS: There was a cyst over the plantar ulceration, right fifth MTPJ cortex from the base of the proximal phalanx of the right 5th is intact. COMPLICATIONS: None. SENIOR INFORMATION DEVELOPER PLAN: The patient will be discharged home at her request. Will continue IV antibiotics, awaiting deep OR cultures and bone cultures. We will continue vancomycin 1200 mg q. 12 hours via PICC line. OPERATION AND FINDINGS: PROCEDURE: The patient was brought to the OR and placed on the OR table in supine position. The plantar aspect of the right fifth MTPJ over previous ulceration was enlarged. A cystic formation with hypertrophic granulation tissue cyst was removed from over where the ulceration was. This was sent to histopathology. Small amount of soft tissue was removed around this area as well, fatty fibrous tissue. There was no gross abscess or purulent drainage from this area. An incision was made dorsally down to the fifth metatarsal, resection back proximal to the neck was performed. The wound was copiously lavaged with 3000 units under pulse lavage with bacitracin. The base of the proximal phalanx was identified. There did not appear to be any cortical involvement of the base of the proximal phalanx. At patient's request the fifth digit was left and just resection of the fifth metatarsal was performed. Closure began of the deep structures using 2-0 Vicryl in a box stitch technique. Skin margins closed using 2-0 Vicryl in simple interrupted fashion. Attention was directed plantarly where Nu Gauze was packed over the ulceration site. A dry sterile compressive dressing consisting of Adaptic, 4 x 4's, Kerlix and an Brad was applied. The patient will be discharged home. Will continue IV antibiotics. We will be weightbearing on ____ shoe on the right lower extremity and will follow up in 3-5 days. We will continue to monitor, deep operative cultures, appreciate medicine and ID's input. I attest to the content of the Intraoperative Record and any orders documented therein. Any exceptio ns are noted below.
[2016-10-15 15:26] VITALS: BP 128/76; PULSE 99; TEMP 36.9; O2SAT 95
--- NOTE | 2016-10-15 15:27 | DISCHARGE SUMMARY ---
PROCEDURES: 1. X-ray on October 14 shows high concern for osteomyelitis of fifth metatarsal head with overlying soft tissue edema and cutaneous ulcer. 2. October 15 OR procedure consistent with an I\T\D and resection of fifth metatarsal. HOSPITAL COURSE: The patient was admitted, was previously started on vancomycin as an outpatient through a PICC line. WBC on admission was 5.68 and ESR 42. Renal profile within normal limits. Creatinine was 0.58 and random glucose 161. AST was 13. Hemoglobin was 10.1 and hematocrit 31.1. The patient was continued on the vancomycin 1200 mg q. 12 hours, was admitted and kept n.p.o. Postoperative day 2, the patient went to the OR for debridement of infected bone. Tolerated the procedure and anesthesia well. H\T\H on October 15 was 9.5 and 28.9. Vanco trough is still pending. Creatinine was 0.50. Iron was 31. C-reactive protein 0.41. DISCHARGE MEDICATIONS: Vancomycin 1200 mg q. 12 hours, hydrochlorothiazide/lisinopril 0.5 tab q.a.m. and glyburide 2.5 mg in the a.m., and metformin 100 mg p.o. b.i.d. ACTIVITIES: The patient will be weightbearing in an shoe, keeping the dressing clean, dry and intact, right lower extremity. Will follow up in my office in 3-5 days and continue to follow empiric cultures and vanco trough.
[2016-10-15] MEDS ORDERED: INSULIN ASPART 100 UNITS/ML 3 ML PEN SC SCH (17:15)
[2016-11-11] MEDS ORDERED: DAPT500I IV (10:17)
== END 2016-10-15 16:00 | disposition home or self-care (01) | DRG 629 ==
LOC: C.MSW 17:50
PROVIDERS: ADMIT Podiatrist Foot & Ankle Surgery; ATTEND Podiatrist Foot & Ankle Surgery
PROC: 0SBM0ZZ Excision of Right Metatarsal-Phalangeal Joint, Open Approach (ICD-10-PCS; principal; 2016-10-15 11:20)
PROC: 0QBN0ZZ Excision of Right Metatarsal, Open Approach (ICD-10-PCS; principal; 2016-10-15 11:20)
DX: E11.69 Type 2 diabetes mellitus with other specified complication (principal); M86.171 Other acute osteomyelitis, right ankle and foot; L03.115 Cellulitis of right lower limb; L97.419 Non-pressure chronic ulcer of right heel and midfoot with unspecified severity; B95.5 Unspecified streptococcus as the cause of diseases classified elsewhere; E11.628 Type 2 diabetes mellitus with other skin complications; E11.621 Type 2 diabetes mellitus with foot ulcer; M25.871 Other specified joint disorders, right ankle and foot; E11.42 Type 2 diabetes mellitus with diabetic polyneuropathy; I10 Essential (primary) hypertension; D64.9 Anemia, unspecified; Z79.84 Long term (current) use of oral hypoglycemic drugs; Z79.899 Other long term (current) drug therapy; Z88.0 Allergy status to penicillin

== ENCOUNTER → 2016-10-23 | Outpatient (CLI) | payer BC ==
[~2016-10-23] MED LIST changes: +DAPT500I IV; +GLYB2.5T7 PO
--- NOTE | 2016-10-24 12:16 | CODING QUERY NO DIAGNOSIS ---
Valid Physician Order Needed 62 A valid physician order must be submitted in order to properly bill for the service(s) provided, including date of service(s), valid diagnosis, and physician signature. If these tests are done on a recurring basis the original physician order must be submitted in order to code and bill for the service(s) provided. Please fax us the original, signed physician order so that we may expedite billing to [phone] DOS 10/23/16 * COMP METABOLIC * CASSIE BOLTON Thank you Justa [facility] Information Management
== END | disposition home or self-care (01) ==
LOC: C.LABSPEC 12:09
PROVIDERS: ATTEND Podiatrist Foot & Ankle Surgery
DX: L03.115 Cellulitis of right lower limb (principal); M86.171 Other acute osteomyelitis, right ankle and foot

== ENCOUNTER → 2016-10-30 | Outpatient (CLI) | payer BC ==
[2016-10-30 11:36] LABS: ALT/SGPT 22 U/L (12-78); BLOOD UREA NITROGEN 17 mg/dl (7-18); BUN/CREATININE RATIO 27.9 (10-20); CARBON DIOXIDE 28 mmol/L (21-32); CHLORIDE 105 mmol/L (98-107); CREATININE 0.62 mg/dl (0.60-1.20); GLUCOSE 147 mg/dl (70-99); POTASSIUM 4.1 mmol/L (3.5-5.1); SODIUM 140 mmol/L (136-145)
[2016-10-30 11:39] LABS: ALB/GLOB RATIO 0.9 (0.9-2); ALKALINE PHOSPHATASE 101 U/L (45-117); AST/SGOT 18 U/L (15-37)
[2016-10-30 11:42] LABS: CALCIUM 9.2 mg/dl (8.5-10.1)
== END | disposition home or self-care (01) ==
LOC: C.LABSPEC 10:55
PROVIDERS: ATTEND Podiatrist Foot & Ankle Surgery
DX: M86.9 Osteomyelitis, unspecified (principal)

== ENCOUNTER → 2016-11-05 | Outpatient (CLI) | payer BC ==
[2016-11-05 12:05] LABS: ALT/SGPT 24 U/L (12-78); AST/SGOT 16 U/L (15-37); BLOOD UREA NITROGEN 13 mg/dl (7-18); BUN/CREATININE RATIO 18.9 (10-20); CALCIUM 9.2 mg/dl (8.5-10.1); CARBON DIOXIDE 31 mmol/L (21-32); CHLORIDE 105 mmol/L (98-107); CREATININE 0.67 mg/dl (0.60-1.20); GLUCOSE 247 mg/dl (70-99); POTASSIUM 3.9 mmol/L (3.5-5.1); SODIUM 141 mmol/L (136-145)
[2016-11-05 12:08] LABS: ALKALINE PHOSPHATASE 102 U/L (45-117)
== END | disposition home or self-care (01) ==
LOC: C.LABSPEC 11:42
PROVIDERS: ATTEND Podiatrist Foot & Ankle Surgery
DX: M86.9 Osteomyelitis, unspecified (principal)

== ENCOUNTER → 2016-11-20 | Outpatient (CLI) | payer BC ==
[2016-11-20 16:11] LABS: BLOOD UREA NITROGEN 20 mg/dl (7-18); CALCIUM 9.2 mg/dl (8.5-10.1); CARBON DIOXIDE 25 mmol/L (21-32); CHLORIDE 103 mmol/L (98-107); GLUCOSE 136 mg/dl (70-99); POTASSIUM 4.3 mmol/L (3.5-5.1); SODIUM 139 mmol/L (136-145)
[2016-11-20 16:14] LABS: PHOSPHORUS 3.3 mg/dl (2.5-4.9)
== END | disposition home or self-care (01) ==
LOC: C.LABSPEC 15:26
PROVIDERS: ATTEND Podiatrist Foot & Ankle Surgery
DX: M86.9 Osteomyelitis, unspecified (principal)

== ENCOUNTER → 2016-11-27 | Outpatient (CLI) | payer BC ==
[2016-11-27 16:55] LABS: BLOOD UREA NITROGEN 13 mg/dl (7-18); BUN/CREATININE RATIO 18.2 (10-20); CALCIUM 9.8 mg/dl (8.5-10.1); CARBON DIOXIDE 28 mmol/L (21-32); CHLORIDE 105 mmol/L (98-107); CREATININE 0.73 mg/dl (0.60-1.20); GLUCOSE 93 mg/dl (70-99); POTASSIUM 4.1 mmol/L (3.5-5.1); SODIUM 139 mmol/L (136-145)
[2016-11-27 16:58] LABS: PHOSPHORUS 2.8 mg/dl (2.5-4.9)
--- NOTE | 2017-02-10 13:15 | CODING QUERY NO DIAGNOSIS ---
Valid Physician Order Needed 62 A valid physician order must be submitted in order to properly bill for the service(s) provided, including date of service(s), valid diagnosis, and physician signature. If these tests are done on a recurring basis the original physician order must be submitted in order to code and bill for the service(s) provided. Please fax us the original, signed physician order so that we may expedite billing to [phone] DOS 11/27/16 * SED RATE (ESR) * CPK * RENAL PROFILE Thank you Justa [facility] Information Management
== END | disposition home or self-care (01) ==
LOC: C.LABSPEC 15:00
PROVIDERS: ATTEND Podiatrist Foot & Ankle Surgery
DX: L03.90 Cellulitis, unspecified (principal); M86.9 Osteomyelitis, unspecified

== ENCOUNTER → 2016-12-30 | Outpatient (CLI) | payer BC | END | disposition home or self-care (01) | LOC: C.LABSPEC 16:45 | PROVIDERS: ATTEND Podiatrist Foot & Ankle Surgery | DX: L97.509 Non-pressure chronic ulcer of other part of unspecified foot with unspecified severity (principal) ==

== ENCOUNTER → 2017-01-22 | Outpatient (CLI) | payer BC | END | disposition home or self-care (01) | LOC: C.LABSPEC 16:47 | PROVIDERS: ATTEND Podiatrist Foot & Ankle Surgery | DX: L97.509 Non-pressure chronic ulcer of other part of unspecified foot with unspecified severity (principal) ==

== ENCOUNTER → 2017-01-28 | Outpatient (CLI) | payer BC ==
[~2017-01-28] VITALS: Ht 170.2 cm; Wt 72.0 kg
--- NOTE | 2017-01-28 16:28 | DIAGNOSTIC IMAGING REPORT ---
MRI OF THE LEFT FOOT WITHOUT CONTRAST CLINICAL HISTORY: Left foot pain with ulceration. Evaluate for osteomyelitis. COMPARISON STUDY: No previous studies for comparison. TECHNIQUE: Utilizing a 1.5 Talisha magnet and dedicated coil, multiplanar, multiecho imaging of the left foot with specific attention to the forefoot was performed without intravenous contrast. FINDINGS: A marker was placed on the skin at site of wound. This overlies the plantar lateral aspect of the left fifth metatarsophalangeal joint. There is a subjacent T2 hyperintense abnormality that suggests a fluid collection which measures 1.9 x 1.2 x 1.2 cm. This is suboptimally assessed on this unenhanced exam but may reflect an abscess. There is moderate marrow edema within the left fifth metatarsal head. There is diminished T1 signal within the left fifth metatarsal head. This suggest osteomyelitis of the right fifth metatarsal head. No additional sites of marrow edema are present on this examination. Tarsometatarsal joints are intact. No additional fluid collections are present. IMPRESSION: 1. Moderate marrow edema with diminished T1 signal within the left fifth metatarsal head suggestive of osteomyelitis. 2. 1.9 x 1.2 x 1.2 cm subcutaneous fluid collection along the lateral plantar aspect of the left fifth metatarsal head, immediately deep to the wound. This is suboptimally assessed on this unenhanced exam but may reflect an abscess. Electronically signed by: Prateek Parr M.D. 01/28/2017 4:27 PM Dictated Date/Time: 01/28/2017 3:10 PM
[2017-02-11 15:02] VITALS: BP 105/57; PULSE 110; TEMP 36.8; Ht 170.2 cm; Wt 72.0 kg
== END | disposition home or self-care (01) ==
LOC: C.MRI 13:28
PROVIDERS: ATTEND Podiatrist Foot & Ankle Surgery
DX: L03.116 Cellulitis of left lower limb (principal)

== ENCOUNTER 2017-02-11 12:15 | Inpatient (IN) | payer BC ==
[~2017-02-11] VITALS: Ht 170.2 cm; Wt 72.0 kg
[~2017-02-11 12:15] MED LIST changes: -GLYB2.5T7 PO
[2017-02-11 13:30] VITALS: BP 132/82; PULSE 110; TEMP 36.6; Ht 170.2 cm; Wt 72.0 kg
--- NOTE | 2017-02-11 13:34 | HISTORY & PHYSICAL EXAMINATION ---
DATE OF ADMISSION: 02/11/2017 HISTORY OF PRESENT ILLNESS: A 56-year-old female who presents for followup evaluation of an ulcer. She is a direct admission from my office. She presented with an ulceration to the office today. She denies any fevers, chills and night sweats. MRI shows bone infection over the left foot. The patient has previously refused admission but is now willing to be admitted to the hospital for a bone infection. The patient is well known to me. She has been treated for diabetic foot issue since 2007. She recently underwent right foot surgery for similar problems on the right foot in the spring. During that time while she was receiving vancomycin she had an allergy to the medication and was switched to daptomycin. She tolerated the daptomycin well with no problems. Ulceration has been present on and off since October 2012, multiple attempts have been made to offload the ulceration include ____ shoe, accommodative padding, DH sandal. She has also had accommodative shoe changes, palliative debridements, multiple topical medications with continued pressure and breakdown over the area. The patient also is refusing toe amp as she had also refused on the right as the MRI shows bone involvement in the metatarsal only. She is requesting a similar type of procedure be performed on the left foot that was performed on the right foot. She is aware of the digital contracture that can occur. She is also aware of the increased risk that pertain to leaving the distal aspect of the toe. PAST SURGICAL HISTORY: Tubal ligation 1994, tonsillectomy 1967, foot surgery in spring on the right. PAST MEDICAL HISTORY: Hypertension, Lyme's disease, diabetes and back problems. MEDICATIONS: Aspirin, glyburide, metformin, lisinopril. ALLERGIES: PENICILLIN, VANCOMYCIN. FAMILY HISTORY: Diabetes, hypertension, stroke associated with maternal grandmother, heart problems, heart attack and high cholesterol. SOCIAL HISTORY: The patient admits to alcohol use, drinking described as social. REVIEW OF SYSTEMS: Unremarkable except chief complaint. PHYSICAL EXAMINATION: CONSTITUTIONAL: The patient appears well-developed and nourished with good attention to body grooming and habitus. HEAD: Normocephalic and atraumatic without any gross head, face, or neck masses. EYES: Conjunctival and pupillary reaction ____ normal. EARS, NOSE, MOUTH, AND THROAT: Unremarkable. NECK: Neck is supple. Trachea is midline. CARDIOVASCULAR EXAMINATION: Normal S1, S2 without murmur, gallops, rubs, or clicks noted. RESPIRATORY: Chest is symmetric. No scars are visible. No port or pacemaker. LUNGS: Clear to auscultation bilaterally and equal. GASTROINTESTINAL EXAMINATION: Abdominal organs, bladder, and kidneys show no abnormalities, masses, tenderness, or rigidity. LOWER EXTREMITY EXAMINATION: Pulses DP and PT are 1 out of 4, digital hair is absent. There is pitting edema noted bilaterally, right greater than left. Focal edema is noted left fifth MTPJ. DERMATOLOGIC: Erythema dorsal lateral aspect of the left forefoot, anterior aspect of the right lower extremity. Shows mild redness, ulceration on the left fifth metatarsophalangeal joint measuring 1.56, preulcerative areas noted on bilateral heels and the right fifth MTPJ. Cicatrix over the right fifth MTPJ is well healed. Base characteristics of the ulceration on the left fifth MTPJ shows tracking, exudate, dried drainage noted in the callous. No active drainage noted. Periwound characteristics erythema on the left. No erythema right. Diabetic ulceration neuropathic ulceration are present. NEUROLOGICAL: Touch, pin and proprioception are decreased. Epicritic sensation per Ortega-Henry monofilament 5.07 is decreased. MUSCULOSKELETAL: Enlarged fifth metatarsal head with dorsal lateral prominence of bone on the left. There is amputation metatarsal head on the right fifth with mild right fifth digital contracture. Recent cultures on chart. MRI to the left foot on 01/28/2017 suggest fluid collection which may represent an abscess, diminished T1 signal in the left fifth metatarsal head suggesting osteomyelitis left fifth metatarsal head. Moderate edema with diminished T1 signal, cutaneous collection along the plantar aspect of the fifth metatarsal immediately deep to the wound, ____ bone scan on 01/21/2017 showed focal uptake noted on the right foot corresponding region of the right first metatarsal. No radiotracer uptake is noted on the fifth metatarsal. IMPRESSION: 1. Cellulitis with abscess, left foot. 2. 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 3. Cristina grade 3 ulceration left fifth metatarsophalangeal joint with bone involvement. 4. Status post right fifth metatarsal resection with I&D 10/15/2016 well-healed. 5. Hypertension. PLAN: Surgical procedures to be performed: I&D left foot metatarsal head resection, left fifth MTPJ. This will be performed under general anesthesia at the hospital. Procedure, risks and complications were fully reviewed with the patient. Consent form and foot diagram and illustration reviewed in all their entirety. All the patient's questions were answered. Complications were discussed in detail with the patient including pain, infection, swelling that may or may not be excessive, pins and needles feeling, numbness, metatarsalgia, excessive bleeding, delay or nonhealing of bone, delay or nonhealing of skin, enlarged scar, failure of the procedure, reoccurrence or worsening condition which may or may not require further surgery, adverse reaction to anesthesia, allergic reaction to suture or other implant material, loss of toe, foot, or leg, flail toe, stiff toe, short toe, elevated toe, transfer lesion or callus, peripheral neurovascular complications such as phlebitis, damage to nerves or vascular structures, significant chronic pain, chronic nerve pain or damage, and general medical complications. The patient will be required to be in a surgery shoe for a minimum for 4-6 weeks and not return to dress shoe for 8-12 weeks depending on postop edema. She is aware this is an elective type procedure and I recommend a second opinion. She understood. Consent form was signed with a copy of the foot diagram issued to the patient. Verbal and written postop instructions were given. The patient will be required to be in a surgery shoe until the incisional area is healed. She is aware that the surgery may result in a more proximal amputation if it does not heal. She is also aware that I recommended amputation of the digit and the metatarsal. She is refusing at this time. She is aware of increased risk and complications. This was described at length. The patient will be admitted to the hospital for IV antibiotics and PICC line, recommended a minimum of 6 weeks of IV antibiotics, stop date being March. Spoke to Dr. Agrawal's office regarding medical co-management with the [facility]. The patient will be n.p.o. after midnight. Empirically started on antibiotics of daptomycin as she tolerated this well before until deeper cultures can be obtained.
[2017-02-11 13:44] VITALS: BP 132/82; PULSE 114; TEMP 36.6; O2SAT 98
[2017-02-11] MEDS ORDERED: NURSING VERBAL MED ORDER ONE ×2 (14:30→16:30)
[2017-02-11] MEDS ORDERED: ACETAMINOPHEN 325 MG TAB PO PRN ×2 (15:15)
[2017-02-11 15:29] LABS: BASO % 0.4 %; BASO ABS # 0.03 K/uL (0-0.2); COMPLETE YES; EOS % 1.8 %; HEMATOCRIT 30.6 % (37-47); IG% 0.1 %; LYMPH % 21.9 %; LYMPH ABS # 1.69 K/uL (1.2-3.4); MEAN CELL VOLUME 86.2 fL (80-100); MEAN CORPUSCULAR HEMOGLOBIN 28.5 pg (25-34); MEAN PLATELET VOLUME 9.1 fL (7.4-10.4); NEUT % 70.8 %; PLATELET COUNT 362 K/uL (130-400); RED BLOOD COUNT 3.55 M/uL (4.2-5.4); WHITE BLOOD COUNT 7.73 K/uL (4.8-10.8)
--- NOTE | 2017-02-11 15:33 | DIAGNOSTIC IMAGING REPORT ---
LEFT FOOT MIN 3 VIEWS ROUTINE CLINICAL HISTORY: R/O OSTEO pain COMPARISON: None. DISCUSSION: Generalized soft tissue edematous change about the lateral margins of the metatarsals. Mild bony osteopenia is present of this does not appear to be focal. A true bony destructive process is not appreciated. IMPRESSION: Significant soft tissue edema. No acute bony abnormality. The above report was generated using voice recognition software. It may contain grammatical, syntax or spelling errors. Electronically signed by: Roberto Singh M.D. 02/11/2017 3:32 PM Dictated Date/Time: 02/11/2017 3:28 PM
--- NOTE | 2017-02-11 15:39 | Medical Consult ---
Consultation Date of Consultation: Feb 11, 2017. Attending Physician: Hailee Smiley D.P.M. Reason for Consultation: medical management . History of Present Illness 56 YO female followed by Dr. Agrawal for Family Medicine. History of DM type 2 and other problems noted below. Diabetes has been well controlled on glyburide and metformin. Last Hgb A1C was 6.7 on 01/08/17. Has had intermittent ulceration of left foot with drainage. Wound culture on 01/22/17 grew Staph aureus (MSSA). Treated with course of trimethoprim / sulfa and ciprofloxacin that she just completed 2 days prior to admission. MRI of left foot on 01/28/17 demonstrated probable osteomyelitis affecting the 5th metatarsal head as well as a possible soft tissue abscess. Admitted to Podiatry Service for anticipated surgical drainage / debridement. . Past Medical/Surgical History Chronic and Resolved Medical Problems: (1) Diabetic neuropathy Status: Chronic (2) DM type 2 (diabetes mellitus, type 2) Status: Chronic (3) Dyslipidemia Status: Chronic (4) HTN (hypertension) Status: Chronic Surgical Problems: (1) S/P tonsillectomy Status: Chronic (2) S/P tubal ligation Status: Chronic . Family History Diabetes mellitus FATHER FH: CAD (coronary artery disease) FATHER ([place] age 59, CABG x 3) Hypertension MOTHER Social History Smoking Status: Never Smoker Alcohol Use: none Housing Status: lives alone Allergies Coded Allergies: Penicillins (Verified Allergy, Severe, LIPS SWELL, 10/13/16) HAPPENED IN CHILDHOOD-PT DOESN'T REMEMBER IF SHE HAD DIFFICULTY BREATHING Vancomycin (Verified Allergy, Intermediate, red rash and itching, 11/11/16) Home Medications Reported Home Medications Medications Dose Route/Sig Max Daily Dose Days Date Category Diabeta (Glyburide) 2.5 Mg Tab 2.5 Mg PO DAILY 02/11/17 Reported Zestoretic 20MG/12.5MG (HCTZ/Lisinopril) Tab 0.5 Tab PO QAM 10/13/16 Reported Glucophage (Metformin Hcl) 500 Mg Tab 1,000 Mg PO BID 10/03/16 Reported Current Inpatient Medications Current Inpatient Medications Medications (Trade) Dose Ordered Sig/Racquel Route Start Time Stop Time Status Last Admin Dose Admin Diphenhydramine HCl (Benadryl Cap) 25 mg HS PRN PO 02/11/17 15:15 03/13/17 15:14 Acetaminophen (Tylenol Tab) 650 mg Q6H PRN PO 02/11/17 15:15 03/13/17 15:14 Aspirin (Ecotrin Tab) 81 mg DAILY@1800 PO 02/12/17 18:00 03/14/17 17:59 Glyburide (MICRONase TAB) 2.5 mg QAM PO 02/13/17 09:00 03/15/17 08:59 HCTZ/Lisinopril (Prinzide 20-12.5MG Tab) 0.5 tab DAILY PO 02/12/17 09:00 03/14/17 08:59 Metformin HCl (Glucophage Tab) 1,000 mg BIDM PO 02/12/17 17:45 03/14/17 17:44 Lactated Ringer's 1,000 ml @ 0 mls/hr Q0M IV 02/12/17 00:00 03/14/17 00:00 Daptomycin 425 mg/ Sodium Chloride 58.5 ml @ 120 mls/hr Q24H IV 02/11/17 16:00 03/25/17 15:59 Review of Systems Constitutional: No fever, No weight loss Eyes: No diplopia Respiratory: No shortness of breath Cardiovascular: + edema (mild dependent), No chest pain Abdomen: No nausea, No vomiting, No diarrhea, No GI bleeding Genitourinary - Female: No dysuria, No hematuria Neurologic: + problem reported (diabetic neuropahty) Endocrine: No excessive thirst, No excessive urination Hematologic / Lymphatic: No abnormal bleeding/bruising Physical Exam Date Time Temp Pulse Resp B/P (MAP) Pulse Ox O2 Delivery O2 Flow Rate FiO2 02/11/17 13:44 36.6 114 18 132/82 (99) 98 Room Air General Appearance: WD/WN, no apparent distress Head: normocephalic, atraumatic Eyes: normal inspection, PERRL, EOMI, sclerae normal ENT: normal ENT inspection, hearing grossly normal, pharynx normal Neck: supple, no adenopathy, thyroid normal, trachea midline Respiratory/Chest: lungs clear, no respiratory distress, no accessory muscle use Cardiovascular: regular rate, rhythm, no edema, no gallop, no JVD, no murmur Abdomen/GI: normal bowel sounds, non tender, soft, no organomegaly Extremities/Musculoskelatal: no calf tenderness, + pertinent finding (left foot bandaged) Neurologic/Psych: talcer II-XII nml as tested (PERRL, EOMI, no facial palsy, no dysarthria), alert, normal mood/affect, oriented x 3 Skin: normal color, warm/dry, no rash Laboratory Results Hgb A1C 6.7 01/08/17. Last 24 Hours Test 02/11/17 15:07 02/11/17 17:37 02/11/17 20:56 White Blood Count 7.73 K/uL Red Blood Count 3.55 M/uL Hemoglobin 10.1 g/dL Hematocrit 30.6 % Mean Corpuscular Volume 86.2 fL Mean Corpuscular Hemoglobin 28.5 pg Mean Corpuscular Hemoglobin Concent 33.0 g/dl Platelet Count 362 K/uL Mean Platelet Volume 9.1 fL Neutrophils (%) (Auto) 70.8 % Lymphocytes (%) (Auto) 21.9 % Monocytes (%) (Auto) 5.0 % Eosinophils (%) (Auto) 1.8 % Basophils (%) (Auto) 0.4 % Neutrophils # (Auto) 5.47 K/uL Lymphocytes # (Auto) 1.69 K/uL Monocytes # (Auto) 0.39 K/uL Eosinophils # (Auto) 0.14 K/uL Basophils # (Auto) 0.03 K/uL RDW Standard Deviation 47.3 fL RDW Coefficient of Variation 14.9 % Immature Granulocyte % (Auto) 0.1 % Immature Granulocyte # (Auto) 0.01 K/uL Erythrocyte Sedimentation Rate 47 mm/hr Sodium Level 136 mmol/L Potassium Level 4.7 mmol/L Chloride Level 107 mmol/L Carbon Dioxide Level 23 mmol/L Anion Gap 6.0 mmol/L Blood Urea Nitrogen 24 mg/dl Creatinine 0.83 mg/dl Estimated GFR () 92.7 Estimated GFR (Non- 79.9 BUN/Creatinine Ratio 29.2 Random Glucose 150 mg/dl Calcium Level 9.1 mg/dl Phosphorus Level 3.1 mg/dl Total Bilirubin 0.2 mg/dl Aspartate Amino Transf (AST/SGOT) 16 U/L Alanine Aminotransferase (ALT/SGPT) 19 U/L Alkaline Phosphatase 101 U/L Total Protein 7.7 gm/dl Albumin 3.4 gm/dl Globulin 4.3 gm/dl Albumin/Globulin Ratio 0.8 Bedside Glucose 101 mg/dl 94 mg/dl LEFT FOOT MIN 3 VIEWS ROUTINE DISCUSSION: Generalized soft tissue edematous change about the lateral margins of the metatarsals. Mild bony osteopenia is present of this does not appear to be focal. A true bony destructive process is not appreciated. IMPRESSION: Significant soft tissue edema. No acute bony abnormality. The above report was generated using voice recognition software. It may contain grammatical, syntax or spelling errors. Electronically signed by: Roberto Singh M.D. 02/11/2017 3:32 PM CHEST ONE VIEW PORTABLE CLINICAL HISTORY: PICC placement right arm. COMPARISON STUDY: No previous studies for comparison. FINDINGS: The tip of the right PICC projects over the SVC. There is no pneumothorax or pleural effusion. Lungs are clear. Pulmonary vascularity is normal. Cardiomediastinal silhouette is normal. IMPRESSION: 1. Tip of right PICC projects over the SVC. 2. No acute cardiopulmonary findings. Electronically signed by: Prateek Parr M.D. 02/11/2017 6:48 PM Dictated Date/Time: 02/11/2017 6:47 PM EKG performed at 17:58 reviewed and demonstrated NSR at 96 / minute, no acute abnormalities. . Assessment & Plan OSTEOMYELITIS / ABSCESS RIGHT FOOT MRI suggested osteomyelitis left 5th metatarsal head and possible abscess. Recent wound culture grew methicillin-sensitive Staph aureus. IV daptomycin ordered. Consider adding gram negative and anaerobic coverage if clinical response not satisfactory. Surgical management per Podiatry. DM TYPE 2 Well-controlled on glyburide and metformin at home. Recent Hgb A1C 6.7. Best to hold oral agents during hospital stay. Pharmacy consulted for glycemic management. HYPERTENSION Continue lisinopril and HCTZ. VTE PROPHYLAXIS Per Podiatry Service. Thank you for this consultation. We will follow the patient with you during their hospital stay. Dr. Bolden will be following for our team starting 02/12. You can reach a member of the [facility] Hospitalist Team 23/12 via pager @ . You can reach me via cell @ [phone]. .
[2017-02-11 15:54] LABS: ALT/SGPT 19 U/L (12-78); BLOOD UREA NITROGEN 24 mg/dl (7-18); BUN/CREATININE RATIO 29.2 (10-20); CALCIUM 9.1 mg/dl (8.5-10.1); CARBON DIOXIDE 23 mmol/L (21-32); CHLORIDE 107 mmol/L (98-107); CREATININE 0.83 mg/dl (0.60-1.20); GLUCOSE 150 mg/dl (70-99); POTASSIUM 4.7 mmol/L (3.5-5.1); SODIUM 136 mmol/L (136-145)
[2017-02-11 15:57] LABS: ALB/GLOB RATIO 0.8 (0.9-2); ALKALINE PHOSPHATASE 101 U/L (45-117); AST/SGOT 16 U/L (15-37); PHOSPHORUS 3.1 mg/dl (2.5-4.9)
[2017-02-11] MEDS ORDERED: DEXTROSE 50% 50 ML SYR IV PRN (16:00)
[2017-02-11] MEDS ORDERED: GLUCOSE 40% GEL 15 GM TUBE PO PRN (16:00)
[2017-02-11] MEDS ORDERED: GLUCOSE 10 TABS/TUBE PO PRN (16:00)
[2017-02-11] MEDS ORDERED: GLUCAGON FOR INJ 1 MG VIAL SQ PRN (16:00)
--- NOTE | 2017-02-11 16:04 | Anesthesiology Progress Note ---
Anesthesia Progress Note Date of Service Feb 11, 2017. Progress Notes The patient is scheduled for a L transmetatarsal amputation tomorrow by Dr. Smiley. She has a L foot abscess from Diabetic neuropathy that is not healing with antibiotics. She had a similar procedure performed on her R foot in September under general anesthesia without any problems. Other PMH includes HTN, type 2 DM, hx of Lyme's disease, and anemia. Her previous EKG showed NSR. Previous labs from September were significant for WBC 4.8 and hgb 9.5. On exam, she has good neck ROM and is a MP 2 airway. Dentition is intact. Lungs are clear and heart is RRR. Carotids are negative for bruits. She was consented to L ankle block, MAC, and general anesthesia which will be determined tomorrow by the anesthesia provider. She was counseled to remain NPO after midnight except for sips of water with pills.
[2017-02-11] MEDS ORDERED: PHARMACY GLYCEMIC MGMT CONSULT PRN (16:30)
[2017-02-11] MEDS: INSULIN ASPART 100 UNITS/ML 3 ML PEN SQ SCH ×3 (18:11→20:57)
--- NOTE | 2017-02-11 18:50 | DIAGNOSTIC IMAGING REPORT ---
CHEST ONE VIEW PORTABLE CLINICAL HISTORY: PICC placement right arm. COMPARISON STUDY: No previous studies for comparison. FINDINGS: The tip of the right PICC projects over the SVC. There is no pneumothorax or pleural effusion. Lungs are clear. Pulmonary vascularity is normal. Cardiomediastinal silhouette is normal. IMPRESSION: 1. Tip of right PICC projects over the SVC. 2. No acute cardiopulmonary findings. Electronically signed by: Prateek Parr M.D. 02/11/2017 6:48 PM Dictated Date/Time: 02/11/2017 6:47 PM
--- NOTE | 2017-02-11 19:39 | Pharmacy Progress Note ---
Glycemic Control Intl Consult Date of Service Feb 11, 2017. Scope Glycemic Pharmacist consulted by Dr Smiley on 02/11/17 for glycemic control and to write orders per [facility] inpatient glycemic control protocol Objective Weight (Kilograms): 72.000 Accuchecks BSG (last 24hrs): Test 02/11/17 15:07 02/11/17 17:37 Random Glucose 150 mg/dl (70-99) Bedside Glucose 101 mg/dl (70-90) Laboratory Data (last 24hrs) Test 02/11/17 15:07 Anion Gap 6.0 mmol/L BUN/Creatinine Ratio 29.2 Blood Urea Nitrogen 24 mg/dl Creatinine 0.83 mg/dl Potassium Level 4.7 mmol/L Sodium Level 136 mmol/L White Blood Count 7.73 K/uL Red Blood Count 3.55 M/uL Hemoglobin 10.1 g/dL Hematocrit 30.6 % Mean Corpuscular Volume 86.2 fL Mean Corpuscular Hemoglobin 28.5 pg Mean Corpuscular Hemoglobin Concent 33.0 g/dl Platelet Count 362 K/uL Mean Platelet Volume 9.1 fL Neutrophils (%) (Auto) 70.8 % Lymphocytes (%) (Auto) 21.9 % Monocytes (%) (Auto) 5.0 % Eosinophils (%) (Auto) 1.8 % Basophils (%) (Auto) 0.4 % Neutrophils # (Auto) 5.47 K/uL Lymphocytes # (Auto) 1.69 K/uL Monocytes # (Auto) 0.39 K/uL Eosinophils # (Auto) 0.14 K/uL Basophils # (Auto) 0.03 K/uL Recent Pertinent Medications Outpatient Anti-diabetic Regimen: * Glyburide 2.5 mg PO qam + Metformin 1000 mg PO BID * A1c = 10 % 10/03/16 Risk Factors for Insulin Resistance: * Infection: left foot cellulitis with abscess, possible osteo * IVF: LR @ 100 ml/hr * Recent Surgery: plan for OR on 02/12 * Diet: T2DM -> NPO at midnight Assessment & Plan ASSESSMENT: * 56 yr old T2DM female admitted for left foot cellulitis with abscess, possible osteomyelitis. * Most recent A1c of 10% (10/03/16) indicated poor outpatient control - ordered current A1c for tomorrow. * ADA & AACE recommend a goal blood sugar range 140-180 mg/dl for the majority of critically ill & non-critically ill patients. However, more stringent targets may be selected in individual cases. Will utilize more stringent goal of 110-140mg/dl based on patient age & comorbidities. Additionally, tighter glycemic control is warranted to facilitate wound/infection healing. * Pt is maintained on oral antidiabetic agents as an outpatient * Will hold oral agents for admission and utilize SQ basal bolus insulin regimen which is the recommended regimen for inpatient glycemic control. PLAN FOR INPATIENT GLYCEMIC CONTROL: * Holding outpatient oral diabetes medications * Basal insulin * Lantus 10 units SQ HS if BSG is > 140 mg/dL * Correctional Insulin with NOVOLOG per scale ACHS or Q6hrs while NPO * Goal Range: Low 110 mg/dL - High 140 mg/dL * Correction Factor: 30 mg/dL/unit * Nutritional / Prandial insulin per carb ratio of 1 unit per 10 grams CHO consumed * Please note that the plan above was derived based on current level of insulin resistance and hospital stress. These recommendations are appropriate for inpatient admission only. Plan of care upon discharge will need to be reassessed to avoid potential outpatient hypo/hyperglycemia. Thank you.
[2017-02-11] MEDS ORDERED: GLYB2.5T7 PO (19:40)
[2017-02-11] MEDS: DAPTOmycin IV 425 MG in SODIUM CHLORIDE 0.9% 50ML 50 ML IV SCH (20:27)
[2017-02-11] MEDS ORDERED: [UNRECOGNIZED DRUG - OTHER] ONE (21:00)
[2017-02-11 23:10] VITALS: BP 104/68; PULSE 91; TEMP 36.9; O2SAT 96
[2017-02-11] MEDS: LACTATED RINGER'S 1000ML 1,000 ML IV SCH (23:41)
[2017-02-12] VITALS (8 sets, daily range): BP systolic 101–135; BP diastolic 63–81; PULSE 89–110; TEMP 36.5–36.9; O2SAT 97–100
[2017-02-12] MEDS: INSULIN ASPART 100 UNITS/ML 3 ML PEN SQ SCH ×2 (05:51→12:00)
[2017-02-12] MEDS ORDERED: BUPIVACAINE 0.5 % 5 MG/1 ML PF 10ML VIAL ONE (06:55)
[2017-02-12] MEDS ORDERED: LISINOPRIL/HCTZ 20/12.5MG TAB PO SCH (09:00)
[2017-02-12] MEDS ORDERED: MIDAZOLAM HCL 1 MG/ML 2ML VIAL ONE (09:07)
[2017-02-12] MEDS ORDERED: FENTANYL CITRATE INJ 50 MCG/1 ML 2 ML VIAL ONE (09:07)
[2017-02-12] MEDS ORDERED: BACITRACIN 50000 UNIT VIAL ONE (09:51)
[2017-02-12] MEDS ORDERED: BUPIVACAINE 0.5 % 5 MG/1 ML MPF 30ML VIAL ONE (10:11)
[2017-02-12] MEDS ORDERED: ONDANSETRON INJ 2 MG/ML 2 ML VIAL IV PRN (10:15)
[2017-02-12] MEDS ORDERED: LABETALOL HCL IV 5 MG/ML 20ML IV PRN (10:15)
[2017-02-12] MEDS ORDERED: FENTANYL CITRATE INJ 50 MCG/1 ML 2 ML VIAL IV PRN (10:15)
[2017-02-12] MEDS ORDERED: ATROPINE SULFATE 0.1 MG/ML 5ML SYR IV PRN (10:15)
[2017-02-12] MEDS ORDERED: LIDOCAINE HCL 2% 2 ML VIAL (20MG/ML) ONE (10:51)
[2017-02-12] MEDS ORDERED: PROPOFOL IV EMULSION 10 MG/ML 20 ML VIAL IV ONE (10:51)
[2017-02-12] MEDS ORDERED: ONDANSETRON INJ 2 MG/ML 2 ML VIAL ONE (10:51)
[2017-02-12] MEDS ORDERED: CIPROFLOXACIN 250 MG TAB PO SCH (11:00)
--- NOTE | 2017-02-12 11:25 | DIAGNOSTIC IMAGING REPORT ---
LEFT FOOT 2 VIEWS CLINICAL HISTORY: LEFT FOOT. Fifth toe amputation. COMPARISON STUDY: Left foot 02/11/2017. FINDINGS: Total fluoroscopy time was 2 seconds. 2 intraoperative fluoroscopic spot images of the left foot. There is amputation of the distal fifth metatarsal. IMPRESSION: Fluoroscopy provided for amputation of the distal left fifth metatarsal. Electronically signed by: Marco Antonio Deleon M.D. 02/12/2017 11:24 AM Dictated Date/Time: 02/12/2017 11:23 AM
--- NOTE | 2017-02-12 11:49 | OPERATIVE REPORT ---
DATE OF OPERATION: 02/12/2017 SURGEON: Dr. Smiley. TWINE REELING MACHINE OPERATOR: None. PREOPERATIVE DIAGNOSES: 1. Osteomyelitis, left fifth metatarsal. 2. Cellulitis, left foot. 3. Abscess, left foot. POSTOPERATIVE DIAGNOSES: Same. PROCEDURES: 1. I&D left foot: 2. Resection, left fifth metatarsal. ANESTHESIA: General with preoperative block given 0.5% Marcaine plain, total of 30 mL. HEMOSTASIS: Pneumatic ankle tourniquet was in place; however, not inflated throughout the procedure. ESTIMATED BLOOD LOSS: 10 mL. MATERIALS: 3-0 Vicryl, 4-0 nylon. HISTOPATHOLOGY: Aerobic and anaerobic culture. Bone sent for culture. COMPLICATIONS: None. CONDITION: The patient tolerated the procedure and anesthesia well without complications, transported to recovery room with vital signs stable and neurovascular status intact. DESCRIPTION OF PROCEDURE: The patient was brought to the OR and placed on the OR table in supine position. Upon completion of general anesthesia by the anesthesia department, a local field block was performed with 30 mL 0.5% Marcaine plain. The foot was scrubbed, prepped and draped in the usual aseptic fashion. Attention was directed to the left foot where over the left fifth metatarsal linear incision was made over the dorsal aspect of the metatarsal. This was dissected down to the metatarsal head. The head portion was communicating with the plantar ulceration site through this. There was no shani abscess noted over there was some softness noted to the metatarsal. This was resected proximally until hard bone. The fifth metatarsal base was examined and found to be hard. There was no shani softness present. No purulence over the area. The wound was copiously lavaged with pulse lavage with bacitracin with 3000 units. Closure began of 3-0 Vicryl in a box stitch technique. Skin margins were reapproximated using 4-0 nylon in simple interrupted fashion. Dry sterile compressive dressing consisted of iodoform Nu Gauze of the plantar ulceration, Adaptic, 4 x 4's, ABDs, Kerlix and an [place]. The patient tolerated the procedure and anesthesia well without complications and transported to recovery room with vital signs stable and neurovascular status intact. The patient will be readmitted to the floor. We will continue empiric antibiotics. Empiric cultures were obtained. We will add Cipro for better gram negative coverage in addition of daptomycin and consulted social service agency director for 6 weeks of IV antibiotics, stop date being the . We will hold all glycemic agents during admission and cover with insulin per pharmacy. We will restart all preop medication. I attest to the content of the Intraoperative Record and any orders documented therein. Any exception s are noted below.
--- NOTE | 2017-02-12 12:14 | DIAGNOSTIC IMAGING REPORT ---
LEFT FOOT MIN 3 VIEWS ROUTINE CLINICAL HISTORY: post op COMPARISON STUDY: Left foot 02/11/2017. FINDINGS: Status post amputation of the distal fifth metatarsal. Soft tissue gas and swelling at this location is due to the recent postoperative change. No radiopaque foreign bodies. Small plantar heel spur. IMPRESSION: Status post amputation of the distal left fifth metatarsal. Electronically signed by: Marco Antonio Deleon M.D. 02/12/2017 12:13 PM Dictated Date/Time: 02/12/2017 12:12 PM
--- NOTE | 2017-02-12 12:15 | Anesthesiology Progress Note ---
Anesthesia Post Op Note Date & Time Feb 12, 2017 at 12:15 Vital Signs Pain Intensity: 0 Vital Signs Past 12 Hours Date Time Temp Pulse Resp B/P (MAP) Pulse Ox O2 Delivery O2 Flow Rate FiO2 02/12/17 11:55 36.6 83 16 119/60 99 Room Air 02/12/17 11:45 36.6 83 16 114/68 99 Room Air 02/12/17 11:35 85 16 121/64 99 Room Air 02/12/17 11:25 85 16 122/66 99 Room Air 02/12/17 11:15 36.4 87 16 118/71 99 Room Air 02/12/17 09:29 36.7 93 20 130/67 (88) 99 Room Air 02/12/17 09:13 36.8 96 18 101/63 (76) 99 Room Air 02/12/17 07:45 Room Air 02/12/17 07:30 36.9 94 18 108/68 (81) 97 Room Air Notes Mental Status: alert / awake / arousable, participated in evaluation Pt Amnestic to Procedure: Yes Nausea / Vomiting: adequately controlled Pain: adequately controlled Airway Patency, RR, SpO2: stable & adequate BP & HR: stable & adequate Hydration State: stable & adequate Anesthetic Complications: no major complications apparent
[2017-02-12] MEDS: LACTATED RINGER'S 1000ML 1,000 ML IV SCH (12:20)
--- NOTE | 2017-02-12 16:23 | Discharge Instructions ---
Discharge Instructions Date of Service Feb 12, 2017. Admission Reason for Admission: Diabetes,Abscess,Cellulitis Osteomyletits Discharge Discharge Diagnosis / Problem: 02-12-2017 Discharge Goals Goal(s): Improve function Activity Recommendations Activity Limitations: as noted below Lifting Limitations: no more than 25 pounds, until after follow-up appointment Exercise/Sports Limitations: rest today May Resume Sexual Activity: when tolerated Shower/Bathe: keep incision dry Driving or Machine Use: no limitations Weightbearing Status: Left non-weightbearing (in surgical shoe) . Current Hospital Diet Patient's current hospital diet: Diabetes Type 2 Diet Discharge Diet Recommended Diet: Regular Diet Procedures Procedures Performed: Left Foot Partial Metatarsal Amputation with Incision and Drainage Pending Studies Studies pending at discharge: no Medical Emergencies . Who to Call and When: Medical Emergencies: If at any time you feel your situation is an emergency, please call 911 immediately. . Non-Emergent Contact Non-Emergency issues call your: Primary Care Provider . "Provider Documentation" section prepared by Hailee Patino. . VTE Core Measure Inpt VTE Proph given/why not?: Treatment not indicated
[2017-02-12] MEDS: DAPTOmycin IV 425 MG in SODIUM CHLORIDE 0.9% 50ML 50 ML IV SCH (16:28)
--- NOTE | 2017-02-12 16:58 | DISCHARGE SUMMARY ---
DATE OF DISCHARGE: 02/12/2017 PROCEDURES: PICC line placement 02/11/2017 and on the 02/12/2017 status post I&D 5th metatarsal head resection left foot. HOSPITAL COURSE: The patient was admitted directly from the office on 02/11/2017. Preoperative labs showed ESR of 47, WBC 7.73, diff was within normal limits. BUN was slightly high at 24. Random glucose was 150, creatinine 0.83. The patient was empirically started on daptomycin. PICC line was placed and was taken to the OR the following day. The patient was ambulating postoperatively in IPOS shoe, tolerating p.o. fluids. DISCHARGE DIAGNOSES: 1. Status post left foot surgery. 2. Cellulitis left foot. 3. Osteomyelitis. 4. Type 2 diabetes. 5. Hypertension. DISCHARGE MEDICATIONS: Daptomycin 450 mg IV q. 24, lisinopril/HCTZ, aspirin, ciprofloxacin 0.5 tabs 1 tablet p.o. daily.
[2017-02-12] MEDS ORDERED: METFORMIN HCL 500 MG TAB PO SCH (17:45)
[2017-02-12] MEDS ORDERED: ASPIRIN 81 MG ECTAB PO SCH (18:00)
--- NOTE | 2017-02-12 19:38 | Progress Note ---
Subjective Date of Service: Feb 12, 2017. Subjective Pt evaluation today including: conversation w/ patient, physical exam, lab review, review of studies, review of inpatient medication list Saw/examined the patient today; she is doing well Had an I&D of the L foot and partial metatarsal amputation Pain controlled No problems/issues to note; eager to go home Problem List Medical Problems: (1) Occluded PICC line Status: Acute Review of Systems Constitutional: No fever, No chills Respiratory: No shortness of breath Cardiac: No chest pain Musculoskeletal: No joint pain Objective Vital Signs Date Time Temp Pulse Resp B/P (MAP) Pulse Ox O2 Delivery O2 Flow Rate FiO2 02/12/17 17:08 36.9 107 16 99 Room Air 02/12/17 15:11 36.9 107 16 125/79 (94) 99 Room Air 02/12/17 14:10 36.8 110 16 135/78 (97) 100 Room Air 02/12/17 13:11 89 16 131/81 (98) 02/12/17 12:45 36.5 89 16 125/76 (92) 98 Room Air 02/12/17 12:10 36.7 89 16 115/73 (87) 99 Room Air 02/12/17 12:10 99 Room Air 02/12/17 11:55 36.6 83 16 119/60 99 Room Air 02/12/17 11:45 36.6 83 16 114/68 99 Room Air 02/12/17 11:35 85 16 121/64 99 Room Air 02/12/17 11:25 85 16 122/66 99 Room Air 02/12/17 11:15 36.4 87 16 118/71 99 Room Air 02/12/17 09:29 36.7 93 20 130/67 (88) 99 Room Air 02/12/17 09:13 36.8 96 18 101/63 (76) 99 Room Air 02/12/17 07:45 Room Air 02/12/17 07:30 36.9 94 18 108/68 (81) 97 Room Air 02/11/17 23:10 36.9 91 16 104/68 (80) 96 Room Air Physical Exam General Appearance: no apparent distress Respiratory/Chest: no respiratory distress, no accessory muscle use Cardiovascular: regular rate, rhythm Extremities: + pertinent finding (L foot is dressed/wrapped) Laboratory Results Last 24 Hours Test 02/11/17 20:56 02/12/17 05:40 02/12/17 09:30 02/12/17 11:25 Bedside Glucose 94 mg/dl 100 mg/dl 103 mg/dl 93 mg/dl Assessment and Plan OSTEOMYELITIS / ABSCESS RIGHT FOOT 02/12 s/p partial metatarsal amputation and I&D to be on dapto for [address] 02/11 MRI suggested osteomyelitis left 5th metatarsal head and possible abscess. Recent wound culture grew methicillin-sensitive Staph aureus. IV daptomycin ordered. Consider adding gram negative and anaerobic coverage if clinical response not satisfactory. Surgical management per Podiatry. DM TYPE 2 - well controlled 02/12 patient to be discharged on current regimen with good control at home 02/11 Well-controlled on glyburide and metformin at home. Recent Hgb A1C 6.7. Best to hold oral agents during hospital stay. Pharmacy consulted for glycemic management. HYPERTENSION Continue lisinopril and HCTZ. VTE PROPHYLAXIS Per Podiatry Service.
[2017-02-12] MEDS ORDERED: LANTUS PER UNIT CHARGE SQ PRN (21:00)
== END 2017-02-12 18:30 | disposition home health service (06) | DRG 629 ==
LOC: C.MSN 13:31
PROVIDERS: ADMIT Podiatrist Foot & Ankle Surgery; ATTEND Podiatrist Foot & Ankle Surgery
PROC: 0QBP0ZZ Excision of Left Metatarsal, Open Approach (ICD-10-PCS; principal; 2017-02-11)
PROC: 02HV33Z Insertion of Infusion Device into Superior Vena Cava, Percutaneous Approach (ICD-10-PCS; 2017-02-11)
DX: E11.69 Type 2 diabetes mellitus with other specified complication (principal); L03.116 Cellulitis of left lower limb; M86.8X7 Other osteomyelitis, ankle and foot; Z79.82 Long term (current) use of aspirin; E11.621 Type 2 diabetes mellitus with foot ulcer; L97.529 Non-pressure chronic ulcer of other part of left foot with unspecified severity; Z88.0 Allergy status to penicillin; Z83.3 Family history of diabetes mellitus; E11.40 Type 2 diabetes mellitus with diabetic neuropathy, unspecified; I10 Essential (primary) hypertension; B95.61 Methicillin susceptible Staphylococcus aureus infection as the cause of diseases classified elsewhere

== ENCOUNTER → 2017-02-18 | Outpatient (CLI) | payer BC ==
[~2017-02-18] MED LIST changes: -DAPT500I IV; +GLYB2.5T7 PO; -MCR5 PO
== END | disposition home or self-care (01) ==
LOC: C.LABSPEC 17:20
PROVIDERS: ATTEND Podiatrist Foot & Ankle Surgery
DX: Z01.89 Encounter for other specified special examinations (principal)

== ENCOUNTER → 2017-02-25 | Outpatient (CLI) | payer BC | END | disposition home or self-care (01) | LOC: C.LABSPEC 10:08 | PROVIDERS: ATTEND Podiatrist Foot & Ankle Surgery | DX: Z01.89 Encounter for other specified special examinations (principal) ==